=== PATIENT | female | born 1955 | race Caucasian/White ===

== ENCOUNTER 2018-12-29 11:59 | Observation (INO) | payer BC ==
[2018-12-29] MEDS ORDERED: Diltiazem 125 MG/25 ML ONE (12:12)
[2018-12-29 12:39] LABS: #Eosinphils 0.1 thou/uL (0.0-0.7); #Lymphocytes 1.5 thou/uL (1.20-3.40); #Monocytes 0.3 thou/uL (0.11-0.59); %Basophils 0.6 % (0.0-1.0); %Eosinophils 0.9 % (0.0-10.0); %Lymphocytes 18.6 % (21.0-51.0); %Monocytes 3.9 % (0.0-10.0); Hemoglobin 15.2 g/dL (12.0-16.0); Mean Corpuscular HGB CONC 33.6 g/dL (32.0-36.0); Mean Corpuscular Hemoglobin 29.7 pg (27.0-31.0); Mean Corpuscular Volume 88.2 fL (78.0-98.0); Mean Platelet Volume 5.9 fL (7.4-10.4); Platelet Count 350 thou/uL (130-400); RBC Distribution Width 12.1 % (11.5-14.5); Red Blood Cell (RBC) Count 5.14 mill/uL (4.20-5.40); White Blood Cell (WBC) Count 7.9 thou/uL (4.8-10.8)
--- NOTE | 2018-12-29 12:58 | RAD ---
EXAM: Portable chest PROVIDED CLINICAL HISTORY: Atrial fibrillation COMPARISON: None FINDINGS: Cardiac and mediastinal silhouette is within normal limits. No focal consolidation, pleural fluid or pneumothorax evident. IMPRESSION: No evidence for an acute cardiopulmonary process.
[2018-12-29 13:04] LABS: ALT (SGPT) 24 U/L (8-55); AST (SGOT) 25 U/L (5-34); Albumin 4.3 g/dL (3.4-4.8); Alkaline Phosphatase 62 U/L (40-150); Anion Gap 15 mmol/L (10-20); BUN (Urea Nitrogen) 8 mg/dL (9.8-20.1); Bilirubin, Total 0.6 mg/dL (0.2-1.2); Calc. Creatinine Clearance 0 mL/min (70-130); Calcium 10.3 mg/dL (7.8-10.44); Carbon Dioxide 23 mmol/L (23-31); Chloride 107 mmol/L (98-107); Estimated GFR-MDRD 74; Globulin 3.4 g/dL (2.4-3.5); Glucose 115 mg/dL (80-115); Potassium 3.6 mmol/L (3.5-5.1); Protein, Total 7.7 g/dL (6.0-8.3); Sodium 141 mmol/L (136-145)
[2018-12-29] MEDS ORDERED: Lidocaine Viscous Sol 2% 15 ml UD Cup ONE (15:16)
[2018-12-29] MEDS ORDERED: Mag-Al 1200 mg/1200 mg/30 ML UDCUP ONE (15:16)
[2018-12-29 16:33] LABS: Troponin I 0.027 ng/mL (< 0.028)
[2018-12-29 17:46] VITALS: BMI 25.0
[2018-12-29] MEDS ORDERED: Ondansetron PF 4 MG/2 ML Vial IVP PRN ×2 (18:00→19:43)
[2018-12-29] MEDS ORDERED: Ondansetron ODT 4 MG TAB SL PRN (18:00)
[2018-12-29] MEDS ORDERED: Calcium Carbonate 500 MG ChewTAB PO PRN (19:43)
[2018-12-29] MEDS ORDERED: Nitroglycerin 0.4 MG TAB (25 Tab Bottle) SL PRN (19:43)
[2018-12-29] MEDS ORDERED: Ondansetron ODT 4 MG TAB PO PRN (19:43)
[2018-12-29] MEDS ORDERED: Acetaminophen 500 MG TAB PO PRN (19:43)
[2018-12-29] MEDS ORDERED: Zolpidem Tartrate 5 MG TAB PO PRN (19:43)
[2018-12-29] MEDS ORDERED: Labetalol HCl 100 MG/20 ML VIAL SLOW IVP PRN (19:43)
[2018-12-29] MEDS: Diltiazem HCl SR 60 mg Capsule PO SCH (21:03)
[2018-12-29 21:31] LABS: Troponin I 0.033 ng/mL (< 0.028)
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
[2018-12-30 06:19] LABS: Bacteria/HPF None Seen HPF (None Seen); Bilirubin Negative (Negative); Blood, Urine Negative (Negative); Clarity Clear (Clear); Glucose, Urine (Dipstick) Normal (Negative); Leukocyte 75 Leu/uL (Negative); Nitrite Negative (Negative); Protein, Urine (Dipstick) Negative (Neg-Trace); RBC/HPF 0-3 HPF (0-3); Squamous Epithelial None Seen HPF (0-3); Urobilinogen Normal mg/dL (Less than 2)
[2018-12-30 06:20] LABS: Urine Culture Reflex Yes Yes
[2018-12-30] MEDS: Diltiazem HCl SR 60 mg Capsule PO SCH ×2 (07:54→21:17)
--- NOTE | 2018-12-30 08:38 | PRG ---
DATE OF SERVICE: 12/30/2018 SUBJECTIVE: The patient is feeling much better. She does not feel her heart racing or fluttering anymore. She had a good sleep last night. Tolerating her medications. Of note, she does report being under a lot of undue stress over the past several months, has been sick over the past week or two, and taking more Sudafed. She typically drinks lots of caffeine during the day. She reports no further episodes of heart racing, shortness of breath, or chest pain. OBJECTIVE: VITAL SIGNS: Temperature 98.5, pulse is 75 to 88, respirations 16, blood pressure 112/64, and pulse ox is 95% on room air. GENERAL: She is awake and alert. No acute distress. Speech is clear. NECK: Supple. HEART: Regular rate and rhythm. LUNGS: Clear. EXTREMITIES: No edema. LABORATORY DATA: Reviewed. Troponin I of 0.023, 0.027, and 0.033. EKG reveals normal sinus rhythm. Rhythm strip from EMS appears to be SVT, possible atrial flutter, but her ER EKG revealed normal sinus rhythm. ASSESSMENT AND PLAN: This is a 63-year-old female patient with no prior medical history, who presented to the Emergency Department with sudden onset of palpitations, lightheadedness, dizziness, admitted for atrial flutter and atrial fibrillation. She is now stable on Cardizem and started on anticoagulation with Eliquis. Waiting cardiology evaluation as well as echocardiogram and will continue those at this time. Further plan per Cardiology to decide whether electrophysiology needs to be consulted. Job ID: [id number]
[2018-12-30] MEDS ORDERED: Apixaban 5 MG TAB PO SCH (09:00)
[2018-12-30 09:37] LABS: Free T4 (Free Thyroxine) 1.07 ng/dL (0.70-1.48); Thyroid Stimulating Hormone 1.9101 uIU/mL (0.35-4.94)
--- NOTE | 2018-12-30 15:23 | NM ---
EXAM: Nuclear medicine VQ scan COMPARISON: Chest x-ray 12/29/2018 HISTORY: Shortness of breath TECHNIQUE: A VQ scan was performed in standard fashion. Ventilation images were obtained using 8 mCi of xenon-133. Perfusion images were obtained using 6.9 mCi of technetium 99m MAA. FINDINGS: Ventilation: Breath hold, equilibrium, and washout phases are unremarkable. No ventilatory defects ar e seen. No air trapping is seen. Perfusion: No small, medium, or large perfusion defects are seen. IMPRESSION: Normal VQ scan
--- NOTE | 2018-12-30 18:05 | CON ---
DATE OF CONSULTATION: HISTORY OF PRESENT ILLNESS: The patient is a pleasant 63-year-old woman who presents for evaluation of palpitations and dizziness. The patient has no previous cardiac history. She states recently she noted having increasing dizziness. On the day of admission, the patient suddenly felt extremely dizzy, lightheaded , and had palpitations. The patient was received IV Cardizem and transferred, and her heart rate slowed down. The patient states her palpitations subsequently resolved. The patient denies having any present palpitations or chest discomfort. PAST MEDICAL HISTORY: None. PAST SURGICAL HISTORY: None. SOCIAL HISTORY: None. MEDICATIONS: None. ALLERGIES: SULFA DRUGS AND AMOXICILLIN. FAMILY HISTORY: Positive family history of coronary artery disease. Mother had myocardial infarction. REVIEW OF SYSTEMS: Ten-point system otherwise unremarkable. PHYSICAL EXAMINATION: GENERAL: This is a thin woman, in no acute distress. VITAL SIGNS: Blood pressure is 129/78. NECK: Showed no jugular venous distention. LUNGS: Clear to auscultation. HEART: Regular rate and rhythm. Normal S1, S2 with a 1/6 systolic murmur. ABDOMEN: Nondistended. EXTREMITIES: Show no edema. VASCULAR: Radial pulses 2+. LABORATORY DATA: Sodium 141, potassium 3.6, chloride 107, bicarbonate 23, BUN 8 , and creatinine 0.78. White blood cell count is 7.9, hemoglobin 15.2, hematocrit 45.3, and platelets are 350. EKG revealed normal sinus rhythm with a normal ECG. Telemetry monitoring showed atrial fibrillation with rapid ventricular response. IMPRESSION: 1. New onset atrial fibrillation. 2. Cor pulmonale. This patient has new onset atrial fibrillation. She also has cor pulmonale. The echocardiogram reveals mildly elevated PA systolic pressure with a possible patent foramen ovale or atrial septal defect. A RYDER should be obtained to make sure that this is not an atrial septal defect. We will obtain a V/Q scan to rule out chronic pulmonary emboli. We will follow this patient with you through her hospitalization. Job ID: [id number] [facility]
[2018-12-30 23:43] LABS: Hemoglobin 14.3 g/dL (12.0-16.0); Platelet Count 373 thou/uL (130-400)
--- NOTE | 2018-12-31 08:24 | PRG ---
DATE OF SERVICE: 12/31/2018 SUBJECTIVE: The patient is feeling fine. She had a good day yesterday. Denies chest pain or shortness of breath. Denies palpitations or dizziness. No further episodes. OBJECTIVE: VITAL SIGNS: Temperature 97.8, pulse of 77, respirations 20, blood pressure 115/59, and pulse ox 97% on room air. Telemetry, sinus rhythm. GENERAL: She is awake and alert, in no acute distress. Speech is clear. NECK: Supple. HEART: Regular rate and rhythm. LUNGS: Clear. EXTREMITIES: With no edema. LABORATORY DATA: Troponin I's were negative. The thyroid function was normal. Hemoglobin and hematocrit are 14.3 and 41.5. Echocardiogram was reviewed, which revealed normal left ventricular ejection fraction at 55% to 60%. Mildly enlarged right atrium, severely enlarged right ventricle, [id number] tricuspid regurgitation, atrial septal defect could not be ruled out. Right ventricular systolic pressure was elevated. A V/Q scan was normal. ASSESSMENT AND PLAN: 1. This is a 63-year-old female patient with no prior heart disease, who was admitted with new-onset atrial fibrillation, atrial flutter, now normal sinus rhythm with Cardizem and anticoagulation with Eliquis. 2. Severely enlarged right ventricle. Dr. Smith to performed a RYDER today to rule out atrial septal defect. Further plan per Cardiology. 3. Disposition: Possibly home this afternoon following the procedure when okay with Cardiology unless there is further intervention necessary after the RYDER. Job ID: [id number]
[2018-12-31] MEDS ORDERED: PROPOFOL 20 ML ONE (11:57)
[2018-12-31] MEDS ORDERED: PROPOFOL 200 MG/20 ML VIAL ONE (12:20)
[2018-12-31] MEDS: Diltiazem HCl SR 60 mg Capsule PO SCH (13:32)
--- NOTE | 2018-12-31 14:59 | OP ---
DATE OF PROCEDURE: 12/31/2018 PROCEDURE PERFORMED: Transesophageal echocardiogram. INDICATION: A 63-year-old woman with paroxysmal atrial fibrillation. DESCRIPTION OF PROCEDURE: The patient was taken to the PACU. The patient was sedated by Anesthesiology. A transesophageal probe was placed into the distal esophagus and stomach. Echocardiographic images were obtained. The transesophageal probe was removed. FINDINGS: 1. Normal left ventricular systolic function. 2. Right atrial enlargement. 3. Right ventricle is enlarged. 4. Mild mitral regurgitation. 5. Mild tricuspid regurgitation. 6. Large atrial septal defect. IMPRESSION: Large ASD. Job ID: [id number]
[2018-12-31 15:31] VITALS: BP 122/59; TEMP 98
--- NOTE | 2018-12-31 23:07 | DIS ---
DATE OF ADMISSION: 12/29/2018 DATE OF DISCHARGE: 12/31/2018 ADMISSION DIAGNOSIS: New onset atrial fibrillation. DISCHARGE DIAGNOSES: Atrial fibrillation, resolved. Cor pulmonale. Large atrial septal defect. CONSULTATIONS: Dr. Smith for Cardiology. PROCEDURES PERFORMED: Telemetry monitoring, echocardiogram, pulmonary perfusion imaging, and transesophageal echocardiogram. HOSPITAL COURSE: This is a 63-year-old female, who has been in her usual state of health and presented to the emergency department with palpitations and dizziness. She was initially found to be in atrial fib and atrial flutter by EMS. They gave her dose of IV Cardizem, which resolved and converted her back to normal sinus rhythm. She remained in normal sinus rhythm during her hospitalization. She continued on Cardizem and was started on Eliquis for anticoagulation on admission. Echocardiogram was done and read by Dr. Smith and found to have severely enlarged right ventricular cavity. He recommended a V/Q scan, which was negative for any pulmonary emboli. He then performed a transesophageal echocardiogram to rule out any septal defect and he did find a large atrial septal defect. The patient remained stable throughout her hospitalization. According to Cardiology, she was stable for discharge home to continue the Eliquis and calcium-channel shemar with close followup. DISCHARGE PHYSICAL EXAMINATION: VITAL SIGNS: Temperature 98.0, pulse of 87 and regular, respirations 16, blood pressure 122/59, pulse ox is 96% on room air. GENERAL: She is awake and alert. No acute distress. Speech is clear. NECK: Supple. HEART: Regular rate and rhythm. LUNGS: Clear bilaterally. No wheeze, rales, or rhonchi. EXTREMITIES: With no edema. PRIOR DISCHARGE MEDICATIONS: Include: 1. Cardizem 60 mg b.i.d. 2. Eliquis 5 mg b.i.d. 3. Vitamin D daily. 4. Calcium p.r.n. FOLLOWUP INSTRUCTIONS: The patient to follow up in my office in 1 week. Follow up with Dr. Smith in 1 to 2 weeks. Job ID: [id number]
== END 2018-12-31 17:41 | disposition home or self-care (01) ==
LOC: ERS 11:59 → 2SW 17:43
PROVIDERS: ADMIT Family Medicine; ATTEND Family Medicine
PROC: B246ZZ4 Ultrasonography of Right and Left Heart, Transesophageal (ICD-10-PCS; principal; 2018-12-31)
DX: I48.91 Unspecified atrial fibrillation (principal); I27.81 Cor pulmonale (chronic); Q21.1 Atrial septal defect; I08.1 Rheumatic disorders of both mitral and tricuspid valves; Z88.0 Allergy status to penicillin; Z88.2 Allergy status to sulfonamides; Z79.899 Other long term (current) drug therapy
CPT/HCPCS: 36415; 71045; 78582; 80053; 81001; 82565; 84439; 84443; 84481; 84484; 85014; 85018; 85025; 85049; 87086; 93005; 93306; 93312; 96361; 96365; G0378; J2704

== ENCOUNTER 2019-02-13 12:04 | Outpatient (CLI) | payer BC ==
[2019-02-13 13:06] LABS: #Eosinphils 0.1 thou/uL (0.0-0.7); #Lymphocytes 1.8 thou/uL (1.20-3.40); #Monocytes 0.4 thou/uL (0.11-0.59); #Neutrophils 5.7 thou/uL (1.40-6.50); %Basophils 0.5 % (0.0-1.0); %Eosinophils 1.3 % (0.0-10.0); %Lymphocytes 22.5 % (21.0-51.0); %Monocytes 5.5 % (0.0-10.0); %Neutrophils 70.2 % (42.0-75.0); Hemoglobin 15.6 g/dL (12.0-16.0); Mean Corpuscular HGB CONC 34.8 g/dL (32.0-36.0); Mean Corpuscular Hemoglobin 30.4 pg (27.0-31.0); Mean Corpuscular Volume 87.3 fL (78.0-98.0); Mean Platelet Volume 5.8 fL (7.4-10.4); Platelet Count 370 thou/uL (130-400); Red Blood Cell (RBC) Count 5.12 mill/uL (4.20-5.40); White Blood Cell (WBC) Count 8.1 thou/uL (4.8-10.8)
[2019-02-13 13:12] LABS: INR-International Normal Ratio 1.3; Prothrombin Time 15.8 SEC (12.0-14.7)
[2019-02-13 13:34] LABS: ALT (SGPT) 24 U/L (8-55); AST (SGOT) 25 U/L (5-34); Albumin 4.9 g/dL (3.4-4.8); Alkaline Phosphatase 70 U/L (40-110); Anion Gap 14 mmol/L (10-20); BUN (Urea Nitrogen) 10 mg/dL (9.8-20.1); Bilirubin, Total 0.7 mg/dL (0.2-1.2); Calc. Creatinine Clearance 0 mL/min (70-130); Calcium 10.4 mg/dL (7.8-10.44); Carbon Dioxide 23 mmol/L (23-31); Chloride 106 mmol/L (98-107); Estimated GFR-MDRD 74; Globulin 3.2 g/dL (2.4-3.5); Glucose 85 mg/dL (80-115); Potassium 4.3 mmol/L (3.5-5.1); Protein, Total 8.1 g/dL (6.0-8.3); Sodium 139 mmol/L (136-145)
== END 2019-02-13 12:05 | disposition home or self-care (01) ==
LOC: LABBT 12:04
PROVIDERS: ATTEND Internal Medicine Cardiovascular Disease
DX: Z01.812 Encounter for preprocedural laboratory examination (principal); R94.39 Abnormal result of other cardiovascular function study
CPT/HCPCS: 80053; 85025; 85610; 85730

== ENCOUNTER 2019-02-17 05:50 | Day surgery (SDC) | payer BC ==
[2019-02-13 12:29] VITALS: BMI 25.2
[2019-02-17] MEDS ORDERED: Lidocaine 1% (PF) 30 ML VIAL ONE (06:45)
[2019-02-17] MEDS ORDERED: Midazolam HCl 2 mg/2 ml Vial ONE (08:12)
[2019-02-17] MEDS ORDERED: Metoprolol Tartrate 5 MG/5 ML VIAL ONE (08:37)
[2019-02-17 09:33] LABS: Actual Bicarbonate (HCO3a) 24.3 mEq/L (22-28); Analyzer IN Cardio OR; Base Excess (BEa) -0.2 mEq/L (-2.0 to +3.0); CO2 Tension 39.1 mmHg (35.0-45.0); Calcium, Ionized 1.19 mmol/L (1.12-1.30); Carboxyhemoglobin (COHb) 0.5 gm% (0.0-3.0); Hemoglobin (Hb) 13.9 g/dL (12.0-16.0); O2 Tension (PaO2) 66.3 mmHg (> 80.0); Potassium - ABG Lab 3.56 mmol/L (3.70-5.30); pH, Arterial 7.41 (7.35-7.45)
[2019-02-17 09:34] LABS: Actual Bicarbonate (HCO3a) 21.9 mEq/L (22-28); Analyzer IN Cardio OR; CO2 Tension 34.8 mmHg (35.0-45.0); Calcium, Ionized 1.17 mmol/L (1.12-1.30); Carboxyhemoglobin (COHb) 0.6 gm% (0.0-3.0); Hemoglobin (Hb) 14.3 g/dL (12.0-16.0); Potassium - ABG Lab 3.59 mmol/L (3.70-5.30); pH, Arterial 7.42 (7.35-7.45)
[2019-02-17 09:35] LABS: Actual Bicarbonate (HCO3a) 16.1 mEq/L (22-28); Actual Bicarbonate (HCO3a) 17.7 mEq/L (22-28); Actual Bicarbonate (HCO3a) 19.2 mEq/L (22-28); Actual Bicarbonate (HCO3a) 23.2 mEq/L (22-28); Actual Bicarbonate (HCO3a) 23.6 mEq/L (22-28); Analyzer IN Cardio OR; Base Excess (BEa) -0.3 mEq/L (-2.0 to +3.0); Base Excess (BEa) -6.5 mEq/L (-2.0 to +3.0); Base Excess (BEa) -7.8 mEq/L (-2.0 to +3.0); CO2 Tension 26.8 mmHg (35.0-45.0); CO2 Tension 28.2 mmHg (35.0-45.0); CO2 Tension 31.3 mmHg (35.0-45.0); CO2 Tension 36.6 mmHg (35.0-45.0); CO2 Tension 37.6 mmHg (35.0-45.0); Calcium, Ionized 0.71 mmol/L (1.12-1.30); Calcium, Ionized 0.77 mmol/L (1.12-1.30); Calcium, Ionized 0.98 mmol/L (1.12-1.30); Calcium, Ionized 1.15 mmol/L (1.12-1.30); Calcium, Ionized 1.16 mmol/L (1.12-1.30); Carboxyhemoglobin (COHb) 0.2 gm% (0.0-3.0); Carboxyhemoglobin (COHb) 0.3 gm% (0.0-3.0); Carboxyhemoglobin (COHb) 0.7 gm% (0.0-3.0); Hemoglobin (Hb) 11.3 g/dL (12.0-16.0); Hemoglobin (Hb) 11.9 g/dL (12.0-16.0); Hemoglobin (Hb) 13.4 g/dL (12.0-16.0); Hemoglobin (Hb) 14.1 g/dL (12.0-16.0); Hemoglobin (Hb) 14.8 g/dL (12.0-16.0); O2 Tension (PaO2) 64.6 mmHg (> 80.0); Potassium - ABG Lab 2.38 mmol/L (3.70-5.30); Potassium - ABG Lab 2.52 mmol/L (3.70-5.30); Potassium - ABG Lab 3.17 mmol/L (3.70-5.30); Potassium - ABG Lab 3.61 mmol/L (3.70-5.30); pH, Arterial 7.37 (7.35-7.45); pH, Arterial 7.38 (7.35-7.45); pH, Arterial 7.41 (7.35-7.45); pH, Arterial 7.43 (7.35-7.45); pH, Arterial 7.47 (7.35-7.45)
[2019-02-17 09:36] LABS: O2 Tension (PaO2) 49.3 mmHg (> 80.0)
[2019-02-17 09:37] LABS: O2 Tension (PaO2) 44.4 mmHg (> 80.0)
[2019-02-17 09:38] LABS: O2 Tension (PaO2) 44.2 mmHg (> 80.0)
[2019-02-17 09:39] LABS: O2 Tension (PaO2) 53.9 mmHg (> 80.0)
[2019-02-17 09:40] LABS: O2 Tension (PaO2) 53.1 mmHg (> 80.0)
[2019-02-17] MEDS ORDERED: Iopamidol 370 76% 100 ML VIAL ONE (11:22)
--- NOTE | 2019-02-17 17:07 | DIS ---
DATE OF ADMISSION: 02/17/2019 DATE OF DISCHARGE: 02/17/2019 DISCHARGE DIAGNOSES: 1. Coronary artery disease. 2. Atrial septal defect. 3. Paroxysmal atrial fibrillation. 4. Hypertension. HOSPITAL COURSE: The patient is a pleasant 64-year-old woman, who presents for a followup evaluation of ASD. The patient today underwent a cardiac catheterization. She was found to have normal left ventricular systolic function with estimated ejection fraction of 55% to 60%. The left anterior descending artery had a 20% proximal lesion and 30% mid lesion. There was a 90% lesion in the first septal shipping specialist. The left circumflex artery was free of significant disease. The right coronary artery was a large caliber vessel and was free of significant disease. The patient was found to have normal pulmonary artery systolic pressures. An accurate QP/QS was not obtained. By echocardiogram, it appeared to be approximately 1.4. The patient is being referred for further evaluation including a cardiac MRI to better delineate the ASD and whether an occluder device should be placed. DISCHARGE MEDICATIONS: 1. Eliquis 5 mg p.o. b.i.d. 2. Diltiazem 60 mg p.o. b.i.d. 3. Vitamin D tablet daily. 4. Calcium carbonate 500 mg q.4 hours. Job ID: [id number] [facility]TDD
== END 2019-02-17 13:45 | disposition home or self-care (01) ==
LOC: CCL 05:50
PROVIDERS: ATTEND Internal Medicine Cardiovascular Disease
PROC: 4A023N7 Measurement of Cardiac Sampling and Pressure, Left Heart, Percutaneous Approach (ICD-10-PCS; principal; 2019-02-17)
DX: I25.10 Atherosclerotic heart disease of native coronary artery without angina pectoris (principal); Q21.1 Atrial septal defect; I48.0 Paroxysmal atrial fibrillation; I10 Essential (primary) hypertension; Z88.0 Allergy status to penicillin; Z88.2 Allergy status to sulfonamides
CPT/HCPCS: 82805; 93451; 93458; 93561; 99152; 99153; C1769; J1644; J2001; J2250; Q9967

== ENCOUNTER 2019-06-13 01:07 | Emergency (ER) | payer BC ==
[2019-06-13 02:16] LABS: #Lymphocytes 1.4 thou/uL (1.20-3.40); #Monocytes 0.9 thou/uL (0.11-0.59); #Neutrophils 10.9 thou/uL (1.40-6.50); %Basophils 0.2 % (0.0-1.0); %Eosinophils 0.3 % (0.0-10.0); %Lymphocytes 10.6 % (21.0-51.0); %Monocytes 6.6 % (0.0-10.0); %Neutrophils 82.3 % (42.0-75.0); Mean Corpuscular HGB CONC 33.9 g/dL (32.0-36.0); Mean Corpuscular Hemoglobin 30.5 pg (27.0-31.0); Platelet Count 299 thou/uL (130-400); RBC Distribution Width 12.2 % (11.5-14.5); Red Blood Cell (RBC) Count 4.57 mill/uL (4.20-5.40); White Blood Cell (WBC) Count 13.2 thou/uL (4.8-10.8)
[2019-06-13 02:37] LABS: ALT (SGPT) 59 U/L (8-55); AST (SGOT) 59 U/L (5-34); Albumin 4.3 g/dL (3.4-4.8); Alkaline Phosphatase 58 U/L (40-110); Anion Gap 13 mmol/L (10-20); BUN (Urea Nitrogen) 17 mg/dL (9.8-20.1); Bilirubin, Total 0.8 mg/dL (0.2-1.2); CK (CPK) 74 U/L (29-168); Calc. Creatinine Clearance 0 mL/min (70-130); Calcium 9.3 mg/dL (7.8-10.44); Carbon Dioxide 24 mmol/L (23-31); Chloride 106 mmol/L (98-107); Estimated GFR-MDRD 85; Globulin 2.7 g/dL (2.4-3.5); Glucose 130 mg/dL (80-115); Sodium 139 mmol/L (136-145)
[2019-06-13 03:02] LABS: CKMB 3.5 ng/mL (0-6.6)
[2019-06-13] MEDS ORDERED: Norepinephrine 8 MG/0.9% NS 250 ML ONE (03:55)
--- NOTE | 2019-06-13 07:46 | RAD ---
EXAM: Single view of the chest HISTORY: Chest pain COMPARISON: 12/29/2018 FINDINGS: Single view of the chest shows a normal sized cardiomediastinal silhouette. There appears to be a septal occlusion device projecting over the heart. There is no evidence of consolidation, mass, or pleural effusion. The bones are unremarkable. IMPRESSION: No evidence of acute cardiopulmonary disease
== END 2019-06-13 04:26 | disposition short-term general hospital (02) ==
LOC: ERS 01:07
DX: I95.9 Hypotension, unspecified (principal); R07.9 Chest pain, unspecified; I48.91 Unspecified atrial fibrillation; Z79.02 Long term (current) use of antithrombotics/antiplatelets; Z79.01 Long term (current) use of anticoagulants; Z79.899 Other long term (current) drug therapy
CPT/HCPCS: 36415; 71045; 80053; 82550; 82553; 84484; 85025; 93005; 96360; 96361

== ENCOUNTER 2019-06-23 15:37 | Emergency (ER) | payer BC ==
[2019-06-23] MEDS ORDERED: diphenhydrAMINE 25 MG CAP ONE (16:00)
[2019-06-23] MEDS ORDERED: Famotidine 20 MG TAB ONE (16:00)
[2019-06-23] MEDS ORDERED: Dexamethasone 4 MG TAB ONE (16:01)
[2019-06-23 18:37] LABS: #Lymphocytes 0.6 thou/uL (1.20-3.40); #Monocytes 0.2 thou/uL (0.11-0.59); #Neutrophils 12.9 thou/uL (1.40-6.50); %Basophils 0.1 % (0.0-1.0); %Eosinophils 0.2 % (0.0-10.0); %Lymphocytes 4.5 % (21.0-51.0); %Monocytes 1.4 % (0.0-10.0); %Neutrophils 93.8 % (42.0-75.0); Hemoglobin 12.9 g/dL (12.0-16.0); Mean Corpuscular HGB CONC 34.3 g/dL (32.0-36.0); Mean Corpuscular Hemoglobin 30.7 pg (27.0-31.0); Mean Corpuscular Volume 89.6 fL (78.0-98.0); Platelet Count 407 thou/uL (130-400); RBC Distribution Width 12.5 % (11.5-14.5); Red Blood Cell (RBC) Count 4.22 mill/uL (4.20-5.40); White Blood Cell (WBC) Count 13.7 thou/uL (4.8-10.8)
[2019-06-23 18:44] LABS: INR-International Normal Ratio 1.1; Prothrombin Time 13.7 SEC (12.0-14.7)
[2019-06-23 18:59] LABS: ALT (SGPT) 52 U/L (8-55); AST (SGOT) 33 U/L (5-34); Alkaline Phosphatase 90 U/L (40-110); Anion Gap 12 mmol/L (10-20); BUN (Urea Nitrogen) 7 mg/dL (9.8-20.1); Bilirubin, Total 0.8 mg/dL (0.2-1.2); Calc. Creatinine Clearance 0 mL/min (70-130); Calcium 9.6 mg/dL (7.8-10.44); Carbon Dioxide 27 mmol/L (23-31); Chloride 105 mmol/L (98-107); Estimated GFR-MDRD 74; Globulin 3.3 g/dL (2.4-3.5); Glucose 103 mg/dL (80-115); Potassium 3.9 mmol/L (3.5-5.1); Protein, Total 7.3 g/dL (6.0-8.3); Sodium 140 mmol/L (136-145)
[2019-06-23] MEDS ORDERED: Clindamycin 150 MG CAP ONE (19:26)
== END 2019-06-23 20:30 | disposition home or self-care (01) ==
LOC: ERS 15:37
DX: L03.113 Cellulitis of right upper limb (principal); I48.91 Unspecified atrial fibrillation
CPT/HCPCS: 80053; 85025; 85610; 99283; J8540; Q0163

== ENCOUNTER 2019-07-16 23:47 | Inpatient (IN) | payer BC, MEDICARE ==
[2019-07-17] MEDS ORDERED: Diltiazem 125 MG/25 ML ONE (00:16)
[2019-07-17 00:25] LABS: #Eosinphils 0.1 thou/uL (0.0-0.7); #Lymphocytes 1.7 thou/uL (1.20-3.40); #Monocytes 0.9 thou/uL (0.11-0.59); #Neutrophils 9.2 thou/uL (1.40-6.50); %Basophils 0.3 % (0.0-1.0); %Eosinophils 0.6 % (0.0-10.0); %Monocytes 7.3 % (0.0-10.0); %Neutrophils 77.8 % (42.0-75.0); Mean Corpuscular HGB CONC 33.3 g/dL (32.0-36.0); Mean Corpuscular Hemoglobin 29.8 pg (27.0-31.0); Mean Corpuscular Volume 89.5 fL (78.0-98.0); Platelet Count 446 thou/uL (130-400); RBC Distribution Width 13.3 % (11.5-14.5); Red Blood Cell (RBC) Count 4.37 mill/uL (4.20-5.40); White Blood Cell (WBC) Count 11.9 thou/uL (4.8-10.8)
[2019-07-17 00:27] LABS: INR-International Normal Ratio 1.1
[2019-07-17 00:28] LABS: PTT 40.7 SEC (22.9-36.1)
[2019-07-17 00:39] LABS: ALT (SGPT) 18 U/L (8-55); AST (SGOT) 20 U/L (5-34); Alkaline Phosphatase 84 U/L (40-110); Anion Gap 18 mmol/L (10-20); BUN (Urea Nitrogen) 13 mg/dL (9.8-20.1); Bilirubin, Total 0.8 mg/dL (0.2-1.2); Calc. Creatinine Clearance 0 mL/min (70-130); Calcium 10.1 mg/dL (7.8-10.44); Carbon Dioxide 23 mmol/L (23-31); Chloride 98 mmol/L (98-107); Estimated GFR-MDRD 73; Globulin 3.8 g/dL (2.4-3.5); Glucose 121 mg/dL (80-115); Potassium 3.7 mmol/L (3.5-5.1); Protein, Total 7.8 g/dL (6.0-8.3); Sodium 135 mmol/L (136-145)
[2019-07-17 03:42] LABS: Troponin I 0.031 ng/mL (< 0.028)
[2019-07-17] MEDS ORDERED: Diltiazem HCl 125 MG, Admixture Fee 1 EACH in Sodium Chloride 0.9% 100 ML IVPB SCH (04:00)
[2019-07-17] MEDS ORDERED: Diltiazem 125 MG in Sodium Chloride 0.9% 100 ML IVPB SCH (04:03)
[2019-07-17] MEDS ORDERED: Acetaminophen 325 MG TAB PO PRN (04:03)
[2019-07-17] MEDS ORDERED: guaiFENesin/Codeine Phosphate 200 mg/20 mg 10 ml UD Cup PO PRN (04:03)
[2019-07-17 04:09] VITALS: BMI 22.5
--- NOTE | 2019-07-17 04:20 | HP ---
PRIMARY CARE PHYSICIAN: Rishabh Lucia DO. [employer] OFFICER: Dr. Kwok at [facility]. She also has seen Dr. Smith. CHIEF COMPLAINT: "I have been hurting all over and my heart has been racing." HISTORY OF PRESENT ILLNESS: Ms. Barragan is a very pleasant 64-year-old female who was diagnosed with atrial fibrillation in December of last year. She says that during that evaluation, she had an echo in which it was discovered that she had an atrial septal defect. She was then transferred to [facility], where she underwent an occluder procedure. She says that following the procedure, she developed a pericardial effusion and had to be life flighted back out to [facility]. She says she was in the hospital for about 11 days. During that time, she was taken off Eliquis and was told never to restart it and had been discharged home. This was around June 12. She had been doing relatively well until earlier today. She started feeling like she was hurting all over. She started having a cough as well. She noticed a low-grade temperature and she says it hurts to take in a breath. She denies feeling short of breath, but says her ribs are sore. She also notes some nausea and was feeling like her heart was racing. As a result, she came to the ER where she was evaluated and found to be in atrial flutter with a heart rate in the 150s. She was given diltiazem 5 mg IV as well as her oral dose and her heart rate now has come down to the 70s and 80s. The patient otherwise says she feels a bit weak, but denies any other complaints. REVIEW OF SYSTEMS: All systems were reviewed and are negative except for that mentioned in the History of Present Illness. PAST MEDICAL HISTORY: Significant for atrial fibrillation, osteopenia, and history of pericardial effusion. PAST SURGICAL HISTORY: She has had a repair of an atrial septal defect as well as a pericardial drain placed. ALLERGIES: TO ASPIRIN, SULFA, AND AMOXICILLIN. FAMILY HISTORY: Significant for father who has diabetes. Mother had heart attack and as a result of the clot busting medicine. She has 2 aunts with breast cancer. SOCIAL HISTORY: She is . She is a nonsmoker and nondrinker. Has 1 child. Code status is full code. CURRENT MEDICATIONS: Include; 1. Amiodarone 200 mg daily. 2. Diltiazem 60 mg twice a day. 3. Potassium chloride 20 mEq p.o. daily. 4. Lasix 20 mg daily. 5. Protonix 40 mg daily. 6. Zyrtec 10 mg a day. PHYSICAL EXAMINATION: GENERAL: She is alert and oriented. She appears to be in no acute distress. She is well developed and well nourished. VITAL SIGNS: Her blood pressure was 146/63, heart rate ranged from 108-150, respiratory rate of 20, temperature is 99.1. HEENT: Pupils are equal, round, and reactive to light. Extraocular muscles are intact. Her sclerae are anicteric. Throat; there is no erythema, no exudates. NECK: No adenopathy. No bruits. LUNGS: Clear to auscultation. There is no wheezing, no rales, no rhonchi. CARDIOVASCULAR: She has a normal S1, S2. She does have a very slight 2/6 systolic murmur at the base. ABDOMEN: Soft. It is nontender, nondistended. Positive for bowel sounds. No rebound or guarding. EXTREMITIES: There is no clubbing, cyanosis, no edema. No calf tenderness. No joint effusions. Neurologic: Her cranial nerves 2 through 12 are grossly intact. Muscle strength is 5/5 in both her upper and lower extremities. SKIN AND INTEGUMENT: No significant skin changes or rash. LABORATORY RESULTS: Sodium is 135, potassium 3.7, chloride is 98, CO2 is 23, BUN of 13, creatinine 0.79, glucose is 121. White blood cell count 11.9, hemoglobin 13, hematocrit is 39.1, and platelet count is 446. INR is 1.1. She has a chest x-ray. Heart size appears just slightly enlarged. She has a mild elevation in the right hemidiaphragm and what appears to be bilateral pleural effusions, some mild congestion, that is by my reading. On her EKG, it was atrial flutter with a heart rate of the 150s. ASSESSMENT: This is a pleasant 64-year-old female who presents to the emergency room with atrial flutter with rapid ventricular response. Her heart rate has been controlled with IV Cardizem. She will be admitted to telemetry. We will continue the IV Cardizem. Consult Dr. Smith for further recommendations. We will hold off on anticoagulation given her a history of recent pericardial effusion and concern for bleeding and defer recommendations to Cardiology. 1. Low-grade fever and pleuritic chest pain. I suspect this is due to a viral syndrome. We will check a viral respiratory panel on the patient. She does admit to having sick family contacts. 2. We will continue amiodarone at her current dose and continue the Protonix and further recommendations to follow. Job ID: [id number]
[2019-07-17 06:29] LABS: Troponin I 0.018 ng/mL (< 0.028)
--- NOTE | 2019-07-17 07:47 | RAD ---
CHEST 1 VIEW: INDICATION: Atrial fibrillation with pleural effusion. COMPARISON: Prior exam dated 07/16/2019 at 1:57 p.m. FINDINGS: There are stable bilateral small pleural effusions. There is bibasilar atelectasis which is slightly more pronounced than on the prior exam. The septal occlusion device is unchanged. Heart size is no rmal. Osseous structures are similar-appearing. IMPRESSION: Small bilateral pleural effusions with bibasilar atelectasis. POS: BH
[2019-07-17] MEDS ORDERED: Amiodarone 200 MG TAB PO SCH (09:00)
--- NOTE | 2019-07-17 09:07 | CON ---
DATE OF CONSULTATION: HISTORY OF PRESENT ILLNESS: The patient is a 64-year-old woman, who presented for evaluation of palpitations. The patient has a history of atrial septal defect. She was seen in December of this year and underwent a cardiac catheterization. She was found to have mild 30% lesion in the LAD and a 20% lesion in the first septal fence installer helper. She also had a 90% stenosis in the left circumflex artery. The patient was sent to [place] for an atrial septal occluder device. She developed atrial arrhythmias and was treated with amiodarone. She was started on Eliquis and had developed a large pericardial effusion. This was subsequently drained. The patient has been on amiodarone and Cardizem. She was in her usual state of health when she developed recurrent palpitations. The patient did not run out of any of her medications. The patient denies having any chest discomfort. PAST MEDICAL HISTORY: 1. Atrial fibrillation. 2. Hypertension. 3. Atrial septal defect. 4. Osteopenia. PAST SURGICAL HISTORY: None ALLERGIES: ASPIRIN, SULFA, AND AMOXICILLIN. SOCIAL HISTORY: Nonsmoker. MEDICATIONS: 1. Amiodarone 200 daily. 2. Diltiazem 60 b.i.d. 3. Potassium 20 daily. 4. Lasix 20 daily. 5. Protonix 40 daily. 6. Zyrtec 20 daily. REVIEW OF SYSTEMS: Ten-point system otherwise unremarkable. PHYSICAL EXAMINATION: GENERAL: This is a thin, pale woman, in no acute distress. VITAL SIGNS: Blood pressure 101/58. NECK: No jugular venous distention. LUNGS: Clear to auscultation. HEART: Regular rate and rhythm. Normal S1 and S2. ABDOMEN: Nondistended. EXTREMITIES: Showed no edema. VASCULAR: Radial pulses 2+. LABORATORY DATA: Sodium 135, potassium 3.7, chloride 98, bicarbonate 23, BUN 13 , and creatinine 0.79. Troponin 0.02. White blood cell count 11.9, hemoglobin 13.0, hematocrit 39.1, and platelets are 446. IMAGING DATA: EKG atrial flutter with 2:1 conduction. IMPRESSION: 1. Atrial flutter. 2. History of atrial arrhythmias. 3. History of atrial septal occluder device placement. 4. History of pericardial effusion. 5. Hypertension. 6. Dyslipidemia. PLAN: This patient presented with recurrent atrial flutter. She converted back to sinus rhythm. The patient is unable to tolerate Eliquis. From a cardiac standpoint, I will increaest her amiodarone. I will contact Dr. Kwok who has been managing her cardiac medications. We will follow this patient with you through her hospitalization. Job ID: [id number] MTDD
[2019-07-17] MEDS ORDERED: Loratadine 10 MG TAB PO PRN (10:30)
--- NOTE | 2019-07-17 18:54 | PDOC.EVN ---
Event Note - Event Note Event Note: pt seen an examined she feels tired today since she did not sleep much last night. she is not on any asa or AC. she states that last time she had hemopericardium. Also she had bruises with aspirin and rash.
[2019-07-17] MEDS: Amiodarone 200 MG TAB PO SCH (20:21)
[2019-07-18 05:23] LABS: #Eosinphils 0.1 thou/uL (0.0-0.7); %Basophils 0.7 % (0.0-1.0); Mean Corpuscular Volume 88.8 fL (78.0-98.0); RBC Distribution Width 13.1 % (11.5-14.5)
[2019-07-18 05:36] LABS: Anion Gap 13 mmol/L (10-20); BUN (Urea Nitrogen) 9 mg/dL (9.8-20.1); Calc. Creatinine Clearance 77 mL/min (70-130); Calcium 9.4 mg/dL (7.8-10.44); Carbon Dioxide 25 mmol/L (23-31); Chloride 101 mmol/L (98-107); Estimated GFR-MDRD 82; Glucose 96 mg/dL (80-115); Potassium 3.6 mmol/L (3.5-5.1); Sodium 135 mmol/L (136-145)
[2019-07-18 05:44] LABS: #Lymphocytes 1.4 thou/uL (1.20-3.40); #Monocytes 0.6 thou/uL (0.11-0.59); #Neutrophils 4.9 thou/uL (1.40-6.50); %Eosinophils 1.9 % (0.0-10.0); %Lymphocytes 19.7 % (21.0-51.0); %Monocytes 8.6 % (0.0-10.0); %Neutrophils 69.1 % (42.0-75.0); Hemoglobin 11.2 g/dL (12.0-16.0); Mean Corpuscular HGB CONC 34.2 g/dL (32.0-36.0); Mean Corpuscular Hemoglobin 30.4 pg (27.0-31.0); Mean Platelet Volume 6.2 fL (7.4-10.4); Platelet Count 394 thou/uL (130-400); Red Blood Cell (RBC) Count 3.67 mill/uL (4.20-5.40)
[2019-07-18] MEDS: Amiodarone 200 MG TAB PO SCH ×2 (08:34→20:46)
[2019-07-18] MEDS: Potassium Chloride 20 MEQ TAB PO SCH (08:34)
[2019-07-18] MEDS: Furosemide 20 MG TAB PO SCH (08:34)
[2019-07-18] MEDS ORDERED: Diltiazem HCl SR 60 mg Capsule PO SCH (10:56)
[2019-07-18] MEDS ORDERED: Aspirin 325 MG TAB PO SCH (10:57)
[2019-07-18] MEDS ORDERED: Aspirin Chewable 81 MG TAB PO SCH (13:45)
--- NOTE | 2019-07-18 14:56 | PDOC.HOSPP ---
- Subjective Encounter Date: 07/18/19 Encounter Time: 11:45 Subjective: Pt sitting up in chair with family by bedside. she states that she was able to sleep well last night compared to her other nights at home. - Objective Vital Signs & Weight: Vital Signs (12 hours) Temp Pulse Resp BP Pulse Ox 07/18/19 11:38 97.9 F 88 16 103/66 96 07/18/19 08:32 98.1 F 86 16 110/55 L 96 07/18/19 03:49 98.2 F 84 16 104/55 L 96 Weight Weight 137 lb 8 oz I&O: 07/17/19 07/18/19 07/19/19 06:59 06:59 06:59 Intake Total 130 865 Output Total 400 700 Balance -270 165 Result Diagrams: 07/18/19 05:03 07/18/19 05:03 Hospitalist ROS - Review of Systems Cardiovascular: denies: chest pain, palpitations, orthopnea, paroxysmal noc. dyspnea, edema, light headedness, other Gastrointestinal: denies: nausea, vomiting, abdominal pain, diarrhea, constipation, melena, hematochezia, other Genitourinary: denies: dysuria, frequency, incontinence, hematuria, retention, other Musculoskeletal: denies: neck pain, shoulder pain, arm pain, back pain, hand pain, leg pain, foot pain, other - Medication Medications: Active Medications Generic Name Dose Route Start Last Admin Trade Name Freq PRN Reason Stop Dose Admin Amiodarone HCl 200 mg 07/17/19 21:00 07/18/19 08:34 Cordarone PO 200 mg BID MARYAM Administration Aspirin 81 mg 07/18/19 13:45 07/18/19 13:55 Aspirin Chewable PO 07/18/19 15:00 81 mg NOW MARYAM Administration Furosemide 20 mg 07/18/19 09:00 07/18/19 08:34 Lasix PO 20 mg DAILY MARYAM Administration Pantoprazole Sodium 40 mg 07/18/19 09:00 07/18/19 08:34 Protonix PO 40 mg DAILY MARYAM Administration Potassium Chloride 20 meq 07/18/19 09:00 07/18/19 08:34 K-Dur PO 20 meq DAILY MARYAM Administration Sodium Chloride 10 ml 07/17/19 09:00 07/18/19 08:34 Flush - Normal Saline IVF 10 ml Q12HR MARYAM Administration - Exam Heart: negative: RRR, no murmur, no gallops, no rubs, normal peripheral pulses, irregular, diminshed peripheral pulses, murmur present, II/IV, III/IV Respiratory: negative: CTAB, no wheezes, no rales, no ronchi, normal chest expansion, no tachypnea, normal percussion, rales, rhonchi, tachypneic, wheezes Gastrointestinal: negative: soft, non-tender, non-distended, normal bowel sounds , no palpable masses, no hepatomegaly, no splenomegaly, no bruit, no guarding, no rigidity, tender to palpation, distended, diminished bowl sounds, voluntary guarding Extremities: negative: no cyanosis, no clubbing, no edema, 1+ LE edema, 2+ LE edema, clubbing Hosp A/P (1) Atrial flutter Code(s): I48.92 - UNSPECIFIED ATRIAL FLUTTER Status: Acute (2) ASD (atrial septal defect) Code(s): Q21.1 - ATRIAL SEPTAL DEFECT Status: Acute (3) Hemopericardium Code(s): I31.2 - HEMOPERICARDIUM, NOT ELSEWHERE CLASSIFIED Status: Acute - Plan pt is currently on amiodarone is feels well on it. I had a lengthy discussion with family about her not being on any AC. she has been in SR overnight. I spoke with her daughter who states that she was sent to a construction management assistant in [place] who did not think asa caused her the rash. Her superior court clerk thought it could have been the yellow coating on her asa. Pt states that she is sensitive to many meds. pt's daughter states that her superior court clerk states that she can be started on asa. will start her on regular asa and see how she does. pt and family has agreed. They are aware of the risk of stroke. They do not want any AC due to her hemopericardium on eliquis and want to follow up with their superior court clerk in [place] for that. Give her low bp will hold off on Cardizem for now and watch her.
--- NOTE | 2019-07-18 15:00 | PDOC.CPN ---
- Subjective Date: 07/18/19 Time: 15:09 Interval history: The pt seen and examined. No overnight events. No cardiac complaints. She had to back to bed due to dizziness after she attempted to walk from bed to door - Objective Allergies/Adverse Reactions: Allergies Allergy/AdvReac Type Severity Reaction Status Date / Time amoxicillin Allergy Verified 02/13/19 12:29 Sulfa (Sulfonamide Allergy Verified 02/13/19 12:29 Antibiotics) aspirin AdvReac GERD Verified 02/13/19 12:29 Visit Medications: Current Medications Acetaminophen (Tylenol) 650 mg PO Q4H PRN PRN Reason: Headache/Fever/Mild Pain (1-3) Amiodarone HCl (Cordarone) 200 mg PO BID [facility] Last Admin: 07/18/19 08:34 Dose: 200 mg Aspirin (Aspirin Chewable) 81 mg PO DAILY MARYAM Furosemide (Lasix) 20 mg PO DAILY MARYAM Last Admin: 07/18/19 08:34 Dose: 20 mg Guaifenesin/Codeine Phosphate (Robitussin Ac) 10 ml PO Q6H PRN PRN Reason: Cough Loratadine (Claritin) 10 mg PO DAILYPRN PRN PRN Reason: Allergies Pantoprazole Sodium (Protonix) 40 mg PO DAILY [facility] Last Admin: 07/18/19 08:34 Dose: 40 mg Potassium Chloride (K-Dur) 20 meq PO DAILY MARYAM Last Admin: 07/18/19 08:34 Dose: 20 meq Sodium Chloride (Flush - Normal Saline) 10 ml IVF Q12HR MARYAM Last Admin: 07/18/19 08:34 Dose: 10 ml Sodium Chloride (Flush - Normal Saline) 10 ml IVF PRN PRN PRN Reason: Saline Flush Vital Signs & Weight: Vital Signs Temp Pulse Resp BP Pulse Ox 07/18/19 11:38 97.9 F 88 16 103/66 96 07/18/19 08:32 98.1 F 86 16 110/55 L 96 07/18/19 03:49 98.2 F 84 16 104/55 L 96 Weight 137 lb 8 oz - Physical Exam General: alert & oriented x3 HEENT: mucus membranes moist Neck: supple neck Cardiac: regular rate and rhythm, S1/S2 Lungs: clear to auscultation Neuro: cranial nerve 2-12 intact Extremities: no edema - Labs Result Diagrams: 07/18/19 05:03 07/18/19 05:03 Troponin/CKMB Troponin I 0.018 ng/mL (< 0.028) 07/17/19 05:41 - Assessment/Plan Assessment/Plan: 1. Aflutter with RVR - converted back to SR; on Amiodarone 200mg BID since 07/17; not on Eliquis due to hx of large Pericardial effusion 2/2 Eliquis. On ASA 81mg qd 2. HTN - stable 3. HLD 4. hx of atrial septal Occluder device placement in [place] 5. Hx of Large Pericardial effusion 2/2 Eliquis MAR reviewed * Dr Kwok in [place] repaired the ASD * Dr Smith' pt Pt. seen and eval. by me. I agree with the plan by the FIXTURE RELAMPER. On my exam she has a few bibasilar rales. No wheezing. RRR. No edema. CXR indicates small bilateral effusions. denise
[2019-07-19] MEDS: Aspirin Chewable 81 MG TAB PO SCH (08:48)
[2019-07-19] MEDS: Furosemide 20 MG TAB PO SCH (08:48)
[2019-07-19] MEDS: Amiodarone 200 MG TAB PO SCH ×2 (08:48→20:59)
[2019-07-19] MEDS: Potassium Chloride 20 MEQ TAB PO SCH (08:48)
[2019-07-19] MEDS ORDERED: Melatonin 3 MG TAB PO PRN (09:32)
--- NOTE | 2019-07-19 12:57 | PDOC.HOSPP ---
- Subjective Encounter Date: 07/19/19 Encounter Time: 10:15 Subjective: pt up in bed states she did not sleep well last night. No events on the monitor. - Objective Vital Signs & Weight: Vital Signs (12 hours) Temp Pulse Resp BP BP Pulse Ox 07/19/19 11:18 97.3 F L 80 18 97/54 L 96 07/19/19 08:45 98 F 88 16 118/58 L 96 07/19/19 04:00 98.7 F 79 18 119/53 L 96 Weight Weight 137 lb 8 oz I&O: 07/18/19 07/19/19 07/20/19 06:59 06:59 06:59 Intake Total 865 1690 Output Total 700 1925 Balance 165 -235 Result Diagrams: 07/18/19 05:03 07/18/19 05:03 Hospitalist ROS - Review of Systems Cardiovascular: denies: chest pain, palpitations, orthopnea, paroxysmal noc. dyspnea, edema, light headedness, other Gastrointestinal: denies: nausea, vomiting, abdominal pain, diarrhea, constipation, melena, hematochezia, other Genitourinary: denies: dysuria, frequency, incontinence, hematuria, retention, other Musculoskeletal: denies: neck pain, shoulder pain, arm pain, back pain, hand pain, leg pain, foot pain, other - Medication Medications: Active Medications Generic Name Dose Route Start Last Admin Trade Name Freq PRN Reason Stop Dose Admin Acetaminophen 650 mg 07/17/19 04:03 07/18/19 20:46 Tylenol PO 650 mg Q4H PRN Administration Headache/Fever/Mild Pain (1-3) Amiodarone HCl 200 mg 07/17/19 21:00 07/19/19 08:48 Cordarone PO 200 mg BID MARYAM Administration Aspirin 81 mg 07/19/19 09:00 07/19/19 08:48 Aspirin Chewable PO 81 mg DAILY MARYAM Administration Furosemide 20 mg 07/18/19 09:00 07/19/19 08:48 Lasix PO 20 mg DAILY MARYAM Administration Pantoprazole Sodium 40 mg 07/18/19 09:00 07/19/19 08:48 Protonix PO 40 mg DAILY MARYAM Administration Potassium Chloride 20 meq 07/18/19 09:00 07/19/19 08:48 K-Dur PO 20 meq DAILY MARYAM Administration Sodium Chloride 10 ml 07/17/19 09:00 07/19/19 08:48 Flush - Normal Saline IVF 10 ml Q12HR MARYAM Administration - Exam Neck: negative: supple, symmetric, no JVD, no thyromegaly, no lymphadenopathy, no carotid bruit, JVD Heart: negative: RRR, no murmur, no gallops, no rubs, normal peripheral pulses, irregular, diminshed peripheral pulses, murmur present, II/IV, III/IV Respiratory: negative: CTAB, no wheezes, no rales, no ronchi, normal chest expansion, no tachypnea, normal percussion, rales, rhonchi, tachypneic, wheezes Hosp A/P (1) Atrial flutter Code(s): I48.92 - UNSPECIFIED ATRIAL FLUTTER Status: Acute (2) ASD (atrial septal defect) Code(s): Q21.1 - ATRIAL SEPTAL DEFECT Status: Acute (3) Hemopericardium Code(s): I31.2 - HEMOPERICARDIUM, NOT ELSEWHERE CLASSIFIED Status: Acute - Plan pt is currently on amiodarone is feels well on it. I had a lengthy discussion with family about her not being on any AC. she has been in SR overnight. I spoke with her daughter who states that she was sent to a operation manager in [place] who did not think asa caused her the rash. Her ethylene plant helper thought it could have been the yellow coating on her asa. Pt states that she is sensitive to many meds. pt's daughter states that her ethylene plant helper states that she can be started on asa. will start her on regular asa and see how she does. pt and family has agreed. They are aware of the risk of stroke. They do not want any AC due to her hemopericardium on eliquis and want to follow up with their ethylene plant helper in [place] for that. Give her low bp will hold off on Cardizem for now and watch her. 07/18 pt tolerated asa no issues. she had no events overnight on the monitor and is in SR. she can go home but wants to wait another day. she had some sharp pain to her right chest wall area. possible discharge in am.
--- NOTE | 2019-07-19 15:27 | PDOC.CPN ---
- Subjective Date: 07/19/19 Time: 15:30 Interval history: The pt seen and examined. No overnight events. No cardiac complaints. Did not have dizziness with exercise today; She is willing to walk more this PM - Objective Allergies/Adverse Reactions: Allergies Allergy/AdvReac Type Severity Reaction Status Date / Time amoxicillin Allergy Verified 02/13/19 12:29 Sulfa (Sulfonamide Allergy Verified 02/13/19 12:29 Antibiotics) aspirin AdvReac GERD Verified 02/13/19 12:29 Visit Medications: Current Medications Acetaminophen (Tylenol) 650 mg PO Q4H PRN PRN Reason: Headache/Fever/Mild Pain (1-3) Last Admin: 07/18/19 20:46 Dose: 650 mg Amiodarone HCl (Cordarone) 200 mg PO BID [facility] Last Admin: 07/19/19 08:48 Dose: 200 mg Aspirin (Aspirin Chewable) 81 mg PO DAILY [facility] Last Admin: 07/19/19 08:48 Dose: 81 mg Furosemide (Lasix) 20 mg PO DAILY [facility] Last Admin: 07/19/19 08:48 Dose: 20 mg Guaifenesin/Codeine Phosphate (Robitussin Ac) 10 ml PO Q6H PRN PRN Reason: Cough Loratadine (Claritin) 10 mg PO DAILYPRN PRN PRN Reason: Allergies Melatonin (Melatonin) 3 mg PO HS PRN PRN Reason: Insomnia Pantoprazole Sodium (Protonix) 40 mg PO DAILY [facility] Last Admin: 07/19/19 08:48 Dose: 40 mg Potassium Chloride (K-Dur) 20 meq PO DAILY [facility] Last Admin: 07/19/19 08:48 Dose: 20 meq Sodium Chloride (Flush - Normal Saline) 10 ml IVF Q12HR [facility] Last Admin: 07/19/19 08:48 Dose: 10 ml Sodium Chloride (Flush - Normal Saline) 10 ml IVF PRN PRN PRN Reason: Saline Flush Vital Signs & Weight: Vital Signs Temp Pulse Resp BP BP Pulse Ox 07/19/19 11:18 97.3 F L 80 18 97/54 L 96 07/19/19 08:45 98 F 88 16 118/58 L 96 07/19/19 04:00 98.7 F 79 18 119/53 L 96 Weight 137 lb 8 oz - Physical Exam General: alert & oriented x3 HEENT: mucus membranes moist Neck: supple neck Cardiac: regular rate and rhythm, S1/S2 Lungs: clear to auscultation, decreased breath sounds Neuro: cranial nerve 2-12 intact - Labs Result Diagrams: 07/18/19 05:03 07/18/19 05:03 Troponin/CKMB Troponin I 0.018 ng/mL (< 0.028) 07/17/19 05:41 - Telemetry Sinus rhythms and dysrhythmias: sinus rhythm - Assessment/Plan Assessment/Plan: 1. Aflutter with RVR - converted back to SR on 07/18/2019; remains in SR now; on Amiodarone 200mg BID since 07/17/2019; not on Eliquis due to hx of large Pericardial effusion 2/2 Eliquis. On ASA 81mg qd 2. HTN - stable 3. HLD 4. hx of ASD with atrial septal Occluder device placement in [place] - will f/u with Dr Kwok in 07/2019 5. Hx of Large Pericardial effusion 2/2 Eliquis MAR reviewed * Dr Kwok in [place] repaired the ASD * Dr Smith' pt
[2019-07-20 09:07] VITALS: BP 111/55; TEMP 97.9
[2019-07-20] MEDS: Aspirin Chewable 81 MG TAB PO SCH (09:30)
[2019-07-20] MEDS: Furosemide 20 MG TAB PO SCH (09:30)
[2019-07-20] MEDS: Amiodarone 200 MG TAB PO SCH (09:30)
[2019-07-20] MEDS: Potassium Chloride 20 MEQ TAB PO SCH (09:30)
[2019-07-20] MEDS ORDERED: Rosuvastatin 10 MG TAB PO SCH (21:00)
--- NOTE | 2019-07-21 11:24 | DIS ---
DATE OF ADMISSION: 07/17/2019 DATE OF DISCHARGE: 07/20/2019 DISCHARGE DIAGNOSES: 1. Atrial flutter, resolved. 2. Atrial septal defect status post occlusive device. 3. History of hemopericardium. HOSPITAL COURSE: The patient is a very pleasant 64-year-old female who initially presented to the hospital on 07/17, with complaints of just body aches and pains. At this time, she was found to be in heart rate of 150 and atrial fibrillation with rapid ventricular response. She was given some diltiazem and was seen by Cardiology. Cardiology increased her amiodarone to 200 mg twice a day. She initially was taking amiodarone 200 mg daily. At this time, she remained in sinus rhythm for 2 whole days. There was some discussion about anticoagulation; however, the patient states that she needs to discuss this with her aquatic ecologist in [place] since after she was on Eliquis, she had a hemopericardium, I will defer that, she does understand the risk of strokes. There is also another issue with her in regard to her aspirin. The patient states that she is very sensitive to medications and had broken out into a rash in [place] and the initial thought was possible aspirin related. However, the patient's daughter did state that she did see an electronics parts sales representative in [place] who did not think it was secondary to aspirin. At this time, [id number] aspirin was started. The patient tolerated for 2 days without any issues. She will be discharged home with that. Also, the patient is going to follow up as an outpatient with her primary and also with aquatic ecologist. She did have some issue with her dental when her crown fell off. I informed her that she needs to see her dentist in regard to this. HOME MEDICATIONS: Will be as of the following. She is going to be on: 1. Amiodarone 200 mg twice a day. 2. Aspirin 81 mg daily. 3. Crestor 10 mg daily. 4. Lasix 20 mg daily. 5. Pantoprazole 40 mg daily. 6. Potassium 20 mEq daily. 7. Zyrtec 10 mg daily p.r.n. PHYSICAL EXAMINATION: VITAL SIGNS: Temperature 97.7, pulse 77, respirations 16, 96% on room air, blood pressure 111/55. GENERAL: She is awake, alert, and oriented x3. Does not appear in distress. CV: S1 and S2 present. No murmurs, rubs, gallops. Again, she will follow up with her primary. Job ID: [id number]
== END 2019-07-20 11:28 | disposition home or self-care (01) | DRG 309 ==
LOC: ERS 23:47 → 2NO 07-17 01:17
PROVIDERS: ADMIT Internal Medicine; ATTEND Internal Medicine
DX: I48.92 Unspecified atrial flutter (principal); I31.2 Hemopericardium, not elsewhere classified; Q21.1 Atrial septal defect; R40.2362 Coma scale, best motor response, obeys commands, at arrival to emergency department; R40.2142 Coma scale, eyes open, spontaneous, at arrival to emergency department; R40.2252 Coma scale, best verbal response, oriented, at arrival to emergency department; I48.91 Unspecified atrial fibrillation; M85.80 Other specified disorders of bone density and structure, unspecified site; Z88.1 Allergy status to other antibiotic agents; Z88.2 Allergy status to sulfonamides; Z88.8 Allergy status to other drugs, medicaments and biological substances; Z83.3 Family history of diabetes mellitus; R50.9 Fever, unspecified; R07.81 Pleurodynia; E78.5 Hyperlipidemia, unspecified; I10 Essential (primary) hypertension
CPT/HCPCS: 36415; 71045; 80048; 80053; 84443; 84484; 85025; 85610; 85730; 87633; 96365; 96366

== ENCOUNTER 2019-07-28 03:05 | Observation (INO) | payer BC, MEDICARE ==
[2019-07-28 03:38] LABS: #Basophils 0.1 thou/uL (0.0-0.2); #Eosinphils 0.1 thou/uL (0.0-0.7); #Lymphocytes 2.1 thou/uL (1.20-3.40); #Monocytes 0.4 thou/uL (0.11-0.59); #Neutrophils 5.2 thou/uL (1.40-6.50); %Basophils 0.9 % (0.0-1.0); %Eosinophils 1.3 % (0.0-10.0); %Lymphocytes 26.4 % (21.0-51.0); %Monocytes 4.9 % (0.0-10.0); %Neutrophils 66.5 % (42.0-75.0); Hemoglobin 12.5 g/dL (12.0-16.0); Mean Corpuscular Hemoglobin 29.1 pg (27.0-31.0); Mean Platelet Volume 6.1 fL (7.4-10.4); Platelet Count 509 thou/uL (130-400); RBC Distribution Width 14.1 % (11.5-14.5); Red Blood Cell (RBC) Count 4.32 mill/uL (4.20-5.40); White Blood Cell (WBC) Count 7.8 thou/uL (4.8-10.8)
[2019-07-28 04:01] LABS: ALT (SGPT) 21 U/L (8-55); AST (SGOT) 25 U/L (5-34); Albumin 4.2 g/dL (3.4-4.8); Alkaline Phosphatase 78 U/L (40-110); Anion Gap 15 mmol/L (10-20); BUN (Urea Nitrogen) 12 mg/dL (9.8-20.1); Bilirubin, Total 0.7 mg/dL (0.2-1.2); Calc. Creatinine Clearance 0 mL/min (70-130); Calcium 10.1 mg/dL (7.8-10.44); Carbon Dioxide 27 mmol/L (23-31); Chloride 103 mmol/L (98-107); Estimated GFR-MDRD 54; Globulin 3.3 g/dL (2.4-3.5); Glucose 99 mg/dL (80-115); Magnesium 2.2 mg/dL (1.6-2.6); Potassium 3.8 mmol/L (3.5-5.1); Protein, Total 7.5 g/dL (6.0-8.3); Sodium 141 mmol/L (136-145)
[2019-07-28 06:34] LABS: Troponin I 0.022 ng/mL (< 0.028)
[2019-07-28] MEDS ORDERED: Ondansetron ODT 4 MG TAB PO PRN (07:31)
[2019-07-28] MEDS ORDERED: Zolpidem Tartrate 5 MG TAB PO PRN (07:31)
[2019-07-28 07:41] VITALS: BMI 22.4
--- NOTE | 2019-07-28 07:56 | RAD ---
Portable frontal chest radiograph: 07/28/2019 COMPARISON: 07/16/2019 HISTORY: Chest pain FINDINGS: Lungs are clear. Heart and mediastinal contours appear within normal limits. Mild linear de nsity in both lung bases suggest scar and/or volume loss. Radiopaque structure overlies the cardiac silhouette suggesting a septal closure device. IMPRESSION: No acute findings.
--- NOTE | 2019-07-28 08:05 | HP ---
PRIMARY CARE PROVIDER: Rishabh Lucia DO INDUSTRIAL ELECTRICAL ENGINEER: Ji Smith MD HISTORY OF PRESENT ILLNESS: The patient with a recent history of atrial septal defect, which she underwent an Occluder device. She is not following that procedure. She developed a pericardial effusion, had to be life flighted back to [facility], this in December of last year. She was recently seen in her hospital with atrial flutter, placed on amiodarone. She was discharged on 07/20/2019. She now presents with chest feeling funny. She states it felt cool inside to take a deep breath. She stated her blood pressure kept going up and down from 145 systolic to 112 to 118 systolic. She states her heart rate was 85, sometimes slower, sometimes faster. She had no other symptoms. PAST MEDICAL HISTORY: 1. Atrial septal defect with Occluder device in [facility] in December of 2018, following that she apparently had pericardial effusion/bleeding. 2. Atrial flutter. 3. History of atrial fibrillation. 4. Osteopenia. CURRENT MEDICATIONS: 1. Amiodarone 200 mg p.o. b.i.d. 2. Lasix 20 mg a day. 3. KCl 20 mEq a day. 4. Aspirin 81 mg a day. 5. Protonix 40 mg a day. She states she was discharged on a cholesterol medicine, which she has not filled or taken. ALLERGIES: LISTED TO ASPIRIN, SULFA, AND AMOXICILLIN, BUT SHE IS ON ASPIRIN. PAST SURGICAL HISTORY: ASD repair, pericardial drain. FAMILY HISTORY: Father has diabetes. Mother had acute HI, suffered complications of sudden with the reperfusion. Two aunts with breast cancer. , at bedside. Nonsmoker, nondrinker. , Don, is surrogate decision maker. She is full code status. REVIEW OF SYSTEMS: HEAD: No headaches, dizziness, or fainting. EYES: No double vision, blurred vision, or flashing light. EAR, NOSE, AND THROAT: No ear pain or drainage. No nasal bleeding. No trouble swallowing. CARDIAC: No pressure, chest pain, orthopnea, or paroxysmal nocturnal dyspnea. RESPIRATIONS: She says she has a cough started yesterday. No wheezing or asthma. GASTROINTESTINAL: No nausea, vomiting, diarrhea, or constipation. GENITOURINARY: No hematuria, dysuria, or nocturia. MUSCULOSKELETAL: No pain or swelling in her arms or legs. NEUROLOGICAL: No strokes, seizures, or focal weakness. She does say that her right arm goes numb at times. It usually happens in the bed and she sleeps with that arm tucked under pillow. PSYCHIATRIC: No history of anxiety or depression, but she has been anxious since her atrial septal defect repair. SKIN: Some easy bruising with mild trauma on her hands. HEME/LYMPH: No tender or swollen lymph nodes in axilla, inguinal, or cervical area. PHYSICAL EXAMINATION: GENERAL: She is alert, pleasant, cooperative lady, who is a bit anxious, but in no distress. VITAL SIGNS: Blood pressure 120/62, pulse 69, respirations 16, room air saturation 98, and temperature 97.5. HEAD, EYES, EARS, NOSE, AND THROAT: Revealed pupils are equal, round, and reactive to light. Extraocular movements are intact. Sclerae are white. Tympanic membranes are clear. Nose clear. Oral mucous membranes are wet. Dental hygiene is good. NECK: No jugular venous distention, adenopathy, or thyromegaly. CHEST: Clear to auscultation and percussion. HEART: Regular rate and rhythm. First and second second heart sounds are clear. No murmur was appreciated. ABDOMEN: Soft. Bowel sounds are normal. There is no hepatosplenomegaly. No mass. No rebound or bruits. EXTREMITIES: Reveal no cyanosis, clubbing, or edema. PULSES: Carotid, radial, femoral, and dorsalis pedis pulses intact and symmetric. SKIN: Warm and dry without bruises or rash. HEME/LYMPH: No tender or swollen lymph nodes in axilla, inguinal, or cervical area. NEUROLOGICAL: Cranial nerves II through XII are intact. Moves all extremities. Sensation intact. IMAGING DATA: EKG x2, regular sinus rhythm with some nonspecific T-wave abnormality, personally reviewed. Chest x-ray, personally reviewed. No cardiomegaly, CHF, or infiltrate. LABORATORY DATA: Comprehensive metabolic profile normal. BNP 67. Troponin 0.01, 0.02. CBC unremarkable except for a platelet count of 509,000. ADMITTING DIAGNOSIS: 1. Atrial septal defect, post repair. 2. Atrial flutter, now in regular sinus rhythm. 3. Dyslipidemia, currently on no therapy. 4. Osteopenia. PLAN: Consult with her fluorescent lighting model maker, Dr. Ji Smith. We will continue her home medicines. Job ID: [id number]
[2019-07-28] MEDS ORDERED: Aspirin 81 mg Enteric Coated Tablet PO SCH (09:00)
[2019-07-28] MEDS: Potassium Chloride 20 MEQ TAB PO SCH (09:12)
[2019-07-28] MEDS: Amiodarone 200 MG TAB PO SCH ×2 (09:12→22:11)
[2019-07-28] MEDS: Furosemide 20 MG TAB PO SCH (09:13)
[2019-07-28] MEDS: Aspirin Chewable 81 MG TAB PO SCH (09:36)
[2019-07-28 09:54] LABS: Troponin I 0.024 ng/mL (< 0.028)
--- NOTE | 2019-07-28 09:59 | CON ---
DATE OF CONSULTATION: HISTORY OF PRESENT ILLNESS: This patient is a 64-year-old woman, with a history of coronary artery disease and an atrial septal defect, who presents with recurrent chest discomfort. The patient was seen in February of 2019. She was diagnosed with an atrial septal defect. She underwent a cardiac catheterization. She was found to have a 20% proximal LAD lesion, a 30% mid lesion, and a 90% lesion in the first septal nurse technician. The left circumflex artery and right coronary artery are free of significant disease. The patient underwent placement of an atrial occluder device done by Dr. Kwok. Following the procedure, she developed a pericardial effusion. She has intolerance to Eliquis and had to undergo drainage of the effusion. The patient also developed postoperative atrial fibrillation. She was seen in a few weeks ago with palpitations. She was in atrial flutter. The dose of her amiodarone was increased. The patient was in her usual state of health when she noted having some fevers and chills. She subsequently reported having midsternal chest discomfort. This seemed to be worse when she took a deep breath or lied on her side. The patient presented to the emergency room for further evaluation. The patient states that her chest pain has subsequently resolved. PAST MEDICAL HISTORY: 1. Coronary artery disease. 2. Atrial septal defect. 3. Atrial fibrillation. 4. Hypertension. PAST SURGICAL HISTORY: None. ALLERGIES: ASPIRIN, SULFA, AND AMOXICILLIN. SOCIAL HISTORY: Nonsmoker. MEDICATIONS: 1. Amiodarone 200 b.i.d. 2. Aspirin 81 daily. 3. Lasix 20 daily. 4. Protonix 40 daily. 5. Potassium 20 daily. PHYSICAL EXAMINATION: GENERAL: This is a well-developed woman, in no acute distress. VITAL SIGNS: Blood pressure 123/70. NECK: No jugular venous distention. LUNGS: Clear to auscultation. HEART: Regular rate and rhythm. Normal S1 and S2. ABDOMEN: Nondistended. EXTREMITIES: Show no edema. VASCULAR: Radial pulses 2+. LABORATORY DATA: Sodium 141, potassium 3.8, chloride 103, bicarbonate 27, BUN 12, and creatinine 1.0. Troponin less than 0.01. BNP was 67. White blood cell count 7.8, hemoglobin 12.5, hematocrit 38.0, and platelets are 509. IMAGING DATA: EKG revealed normal sinus rhythm with a nonspecific T-wave abnormality. IMPRESSION: 1. Chest pain, atypical. 2. History of coronary artery disease. 3. History of atrial septal defect Occluder device. 4. History of atrial fibrillation. 5. History of pericardial effusion. This patient presents with chest pain that is primarily atypical feature. She had a recent catheterization, which revealed moderate CAD. We will proceed with stress test to make sure there is no evidence of severe ischemia. Otherwise, we will follow this patient with you through her hospitalization. Job ID: [id number] [facility]
--- NOTE | 2019-07-28 13:44 | NM ---
Radionucleotide stress and rest myocardial perfusion scan with CT attenuation correction and SPECT im aging Left ventricular wall motion evaluation and ejection fraction HISTORY: Chest pain. Atrial fibrillation. FINDINGS: Lexiscan protocol. There is homogeneous uptake of radiotracer throughout the left ventricul ar myocardium. No focal perfusion defect or reversibility. QGS analysis of gated SPECT images shows no focal wall motion abnormalities. Ejection fraction calculated at 75%. IMPRESSION: Normal exam. Normal LVEF.
[2019-07-28] MEDS ORDERED: Pantoprazole 40 MG VIAL IVP SCH (15:00)
[2019-07-28] MEDS ORDERED: Regadenoson 0.4 MG/5 ML SYRINGE ONE (15:13)
[2019-07-28] MEDS ORDERED: Lidocaine 2% Viscous Solution 10 ML, Aluminum & Magnesium Hydroxide 30 ML SSW SCH (16:15)
--- NOTE | 2019-07-28 17:11 | PDOC.EVN ---
Event Note - Event Note Event Note: stress test normal. still complaining of vague chest pain. Dr Smith wants to watcn overnite, reevaluate inn AM
[2019-07-28] MEDS ORDERED: ALPRAZolam 0.25 MG TAB PO SCH (17:30)
[2019-07-28 18:07] LABS: Troponin I 0.013 ng/mL (< 0.028)
[2019-07-28] MEDS ORDERED: Rosuvastatin 10 MG TAB PO SCH (21:00)
[2019-07-28] MEDS: ALPRAZolam 0.25 MG TAB PO SCH (22:14)
[2019-07-28] MEDS: Acetaminophen 325 MG TAB PO PRN (22:43)
[2019-07-29] MEDS: Acetaminophen 325 MG TAB PO PRN (06:40)
[2019-07-29 08:20] VITALS: BP 109/59; TEMP 97.7
[2019-07-29] MEDS: ALPRAZolam 0.25 MG TAB PO SCH (08:42)
[2019-07-29] MEDS: Amiodarone 200 MG TAB PO SCH (08:42)
[2019-07-29] MEDS: Aspirin Chewable 81 MG TAB PO SCH (08:42)
[2019-07-29] MEDS: Furosemide 20 MG TAB PO SCH (09:00)
[2019-07-29] MEDS: Potassium Chloride 20 MEQ TAB PO SCH (09:00)
--- NOTE | 2019-07-29 13:32 | DIS ---
DATE OF ADMISSION: 07/28/2019 DATE OF DISCHARGE: 07/29/2019 PRIMARY CARE PHYSICIAN: Dr. Lucia. DISCHARGE DISPOSITION: Home. 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 SECONDARY DISCHARGE DIAGNOSES: History of atrial septal defect, history of atrial flutter, osteopenia, dyslipidemia. PRIMARY PROCEDURE/OPERATION: None. RADIOLOGICAL INVESTIGATION: Chest x-ray was normal. Stress test was negative. SIGNIFICANT LABORATORY DATA: CBC normal. BMP and LFT normal. Cardiac enzyme negative. DISCHARGE MEDICATIONS: 1. Zyrtec 10 mg daily p.r.n. 2. Lasix 20 mg daily. 3. Potassium chloride 20 mEq daily. 4. Xanax 0.25 mg b.i.d. p.r.n. 5. Amiodarone 200 mg p.o. b.i.d. 6. Aspirin 81 mg daily. 7. Protonix 40 mg p.o. daily. 8. Crestor 10 mg p.o. at bedtime. CONTRAINDICATION: None. The patient is not on blood thinner medication for current history of atrial flutter which is in sinus rhythm as per Cardiology recommendation. CODE STATUS: Full code. INPATIENT DIRECTOR SPEECH LANGUAGE: Dr. Smith, Cardiology. TEST RESULT PENDING ON DISCHARGE: None. ALLERGIES: AMOXICILLIN, SULFA. DISCHARGE PLAN: Posthospital, the patient will follow up with Cardiology and Dr. Lucia in one week. HOSPITAL COURSE: A 64-year-old female who was admitted by Dr. Chappell. Please see his H and P for further details. On admission, the patient was having vague chest discomfort. The patient has only history of atrial flutter and she was on amiodarone. She was discharged recently from the hospital and she was feeling vague chest discomfort and that is why she was brought to emergency room. Her serial cardiac enzyme was negative. Cardiology saw this patient and recommended to continue all previous medication without any change, but the patient's chest discomfort was consistent with possible anxiety neurosis and that is why they recommended to start Xanax which was prescribed and she will get refill from primary care physician. We have also prescribed Protonix for GERD, which is also contributing to her discomfort. Overall, the patient has clinical improvement and Cardiology cleared her for discharge. There is no plan for cardiac catheterization during this admission. The patient is seen and examined at bedside today. PHYSICAL EXAMINATION: VITAL SIGNS: Currently, temperature 97.7, pulse 76, respiratory rate 17, saturation 97% on room air, blood pressure 109/59. Weight 135 pounds. GENERAL: The patient is currently alert, awake, no acute distress. HEAD: Normocephalic and atraumatic. NECK: Supple. No JVD. No meningeal signs of irritation. LUNGS: Clear to auscultation without any rhonchi or rales. CARDIAC: S1 and S2 regular, no murmur, no gallop, no rub. ABDOMEN: Soft, bowel sounds present, nontender, nondistended. No organomegaly. No mass. EXTREMITIES: No edema. NEUROLOGIC: Nonfocal examination. The patient is medically stable for discharge today. I have checked [place] [facility] website before prescribing xanax and there was no record found under her name Job ID: [id number] MTDD
--- NOTE | 2019-08-01 14:14 | EKG ---
Test Reason : Blood Pressure : / mmHG Vent. Rate : 062 BPM Atrial Rate : 062 BPM P-R Int : 138 ms QRS Dur : 084 ms QT Int : 428 ms P-R-T Axes : 037 035 016 degrees QTc Int : 434 ms Normal sinus rhythm Possible Left atrial enlargement Nonspecific T wave abnormality Abnormal ECG #2 New T wave inversion V3-V5 Confirmed by JACK JORDAN DO ([id number]), commercial production editor HEMANT CHAVEZ ([id number]) on 08/01/2019 2:14:37 PM Referred By: Confirmed By:JACK JORDAN DO
--- NOTE | 2019-08-01 14:14 | EKG ---
Test Reason : Blood Pressure : / mmHG Vent. Rate : 077 BPM Atrial Rate : 077 BPM P-R Int : 148 ms QRS Dur : 088 ms QT Int : 414 ms P-R-T Axes : 053 044 009 degrees QTc Int : 468 ms Normal sinus rhythm Possible Left atrial enlargement Borderline ECG Confirmed by JACK JORDAN DO ([id number]), industrial editor HEMANT CHAVEZ ([id number]) on 08/01/2019 2:14:06 PM Referred By: Confirmed By:JACK JORDAN DO
--- NOTE | 2019-08-07 13:07 | STRESS ---
Acquisition Time: 2019-07-28 12:05:38 Total Exercise Time: 00:01:00 Test Indications: CHEST PAIN Medications: Protocol: LEXISCAN Max HR: 107 BPM 69% of Pred: 154 BPM Max BP: 124/064 mmHG Max Work Load: 1.0 METS THE PATIENT WAS INJECTED WITH LEXISCAN. SHE DID DEVELOP CHEST PAIN. THERE WAS T-WAVE INVERSION WITH STRESS. AWAIT NUCLEAR IMAGES FOR DEFINITIVE DIAGNOSIS Confirmed by MANUEL PINEDA ([id number]), industrial editor AYAAN ELLIOTT ([id number]) on 08/07/2019 1:06:47 PM Referred By: MIRIAM Confirmed By:MANUEL PINEDA
== END 2019-07-29 11:43 | disposition home or self-care (01) ==
LOC: ERS 03:05 → 2SW 06:17
PROVIDERS: ADMIT Internal Medicine; ATTEND Internal Medicine
DX: F41.1 Generalized anxiety disorder (principal); E78.5 Hyperlipidemia, unspecified; M85.80 Other specified disorders of bone density and structure, unspecified site; I25.10 Atherosclerotic heart disease of native coronary artery without angina pectoris; I48.91 Unspecified atrial fibrillation; I10 Essential (primary) hypertension; Z79.899 Other long term (current) drug therapy; Z79.82 Long term (current) use of aspirin; Z88.0 Allergy status to penicillin; Z88.2 Allergy status to sulfonamides; Z88.6 Allergy status to analgesic agent
CPT/HCPCS: 36415; 71045; 78452; 80053; 80299; 83735; 83880; 84484; 85025; 93005; 93017; 96374; A9500; C9113; G0378; J2785

== ENCOUNTER 2020-06-04 20:11 | Emergency (ER) | payer BC ==
[2020-06-04 20:58] LABS: #Eosinphils 0.1 thou/uL (0.0-0.7); #Lymphocytes 2.1 thou/uL (1.20-3.40); #Monocytes 0.4 thou/uL (0.11-0.59); #Neutrophils 5.2 thou/uL (1.40-6.50); %Basophils 0.5 % (0.0-1.0); %Eosinophils 1.1 % (0.0-10.0); %Lymphocytes 27.1 % (21.0-51.0); %Monocytes 4.6 % (0.0-10.0); %Neutrophils 66.6 % (42.0-75.0); Hemoglobin 14.2 g/dL (12.0-16.0); Mean Corpuscular HGB CONC 35.3 g/dL (32.0-36.0); Mean Corpuscular Hemoglobin 32.5 pg (27.0-31.0); Mean Corpuscular Volume 92.1 fL (78.0-98.0); Mean Platelet Volume 6.4 fL (7.4-10.4); Platelet Count 393 thou/uL (130-400); RBC Distribution Width 12.2 % (11.5-14.5); Red Blood Cell (RBC) Count 4.38 mill/uL (4.20-5.40); White Blood Cell (WBC) Count 7.7 thou/uL (4.8-10.8)
[2020-06-04 21:21] LABS: ALT (SGPT) 34 U/L (8-55); AST (SGOT) 38 U/L (5-34); Albumin 4.3 g/dL (3.4-4.8); Alkaline Phosphatase 90 U/L (40-110); Anion Gap 16 mmol/L (10-20); BUN (Urea Nitrogen) 13 mg/dL (9.8-20.1); Bilirubin, Total 0.6 mg/dL (0.2-1.2); Calc. Creatinine Clearance 0 mL/min (70-130); Calcium 9.6 mg/dL (7.8-10.44); Carbon Dioxide 25 mmol/L (23-31); Chloride 103 mmol/L (98-107); Globulin 3.5 g/dL (2.4-3.5); Glucose 89 mg/dL (80-115); Potassium 3.9 mmol/L (3.5-5.1); Protein, Total 7.8 g/dL (6.0-8.3); Sodium 140 mmol/L (136-145)
--- NOTE | 2020-06-04 21:54 | RAD ---
PORTABLE CHEST ONE VIEW: 06/04/20 at 9:33 p.m. HISTORY: Shortness of breath. COMPARISON: 07/28/19. The heart size is normal. The lungs are expanded without lobar consolidation, pneumothoraces or pleur al effusions. Septal occlusion device overlying the cardiac silhouette is again seen. There is an old nonhealed dis placed fracture of the left clavicle. IMPRESSION: No acute process. POS: OFF
[2020-06-04 23:56] LABS: Troponin I 0.013 ng/mL (< 0.028)
== END 2020-06-05 01:30 | disposition home or self-care (01) ==
LOC: ERS 20:11
DX: R06.02 Shortness of breath (principal); I10 Essential (primary) hypertension; I48.91 Unspecified atrial fibrillation
CPT/HCPCS: 36415; 71045; 80053; 84443; 84484; 85025; 93005

== ENCOUNTER 2021-03-12 00:15 | Emergency (ER) | payer MEDICARE, BC ==
[2021-03-12 01:53] LABS: ALT (SGPT) 16 U/L (8-55); AST (SGOT) 21 U/L (5-34); Albumin 4.3 g/dL (3.4-4.8); Alkaline Phosphatase 79 U/L (40-110); Anion Gap 14 mmol/L (10-20); BUN (Urea Nitrogen) 17 mg/dL (9.8-20.1); Bilirubin, Total 0.5 mg/dL (0.2-1.2); Calc. Creatinine Clearance 0 mL/min (70-130); Calcium 9.9 mg/dL (7.8-10.44); Carbon Dioxide 25 mmol/L (23-31); Chloride 106 mmol/L (98-107); Globulin 3.2 g/dL (2.4-3.5); Glucose 99 mg/dL (80-115); Lipase 74 U/L (8-78); Potassium 4.2 mmol/L (3.5-5.1); Protein, Total 7.5 g/dL (5.8-8.1); Sodium 141 mmol/L (136-145)
[2021-03-12 01:54] LABS: #Basophils 0.1 thou/uL (0.0-0.2); #Eosinphils 0.2 thou/uL (0.0-0.7); #Lymphocytes 1.8 thou/uL (1.20-3.40); #Monocytes 0.4 thou/uL (0.11-0.59); #Neutrophils 4.2 thou/uL (1.40-6.50); %Basophils 0.8 % (0.0-1.0); %Eosinophils 3.4 % (0.0-10.0); %Lymphocytes 26.7 % (21.0-51.0); %Monocytes 5.6 % (0.0-10.0); %Neutrophils 63.5 % (42.0-75.0); Hemoglobin 13.7 g/dL (12.0-16.0); Mean Corpuscular HGB CONC 34.1 g/dL (32.0-36.0); Mean Corpuscular Hemoglobin 29.8 pg (27.0-31.0); Mean Corpuscular Volume 87.3 fL (78.0-98.0); Mean Platelet Volume 6.4 fL (7.4-10.4); Platelet Count 428 thou/uL (130-400); RBC Distribution Width 13.2 % (11.5-14.5); Red Blood Cell (RBC) Count 4.61 mill/uL (4.20-5.40); White Blood Cell (WBC) Count 6.6 thou/uL (4.8-10.8)
[2021-03-12 04:24] LABS: Bilirubin Negative (Negative); Blood, Urine Negative (Negative); Clarity Clear (Clear); Glucose, Urine (Dipstick) Normal (Negative); Ketone, Urine Negative (Negative); Leukocyte 25 Leu/uL (Negative); Nitrite Negative (Negative); Protein, Urine (Dipstick) Negative (Neg-Trace); RBC/HPF 0-3 HPF (0-3); Specific Gravity, Urine 1.006 (1.002-1.036); Squamous Epithelial 0-3 HPF (0-3); Urobilinogen Normal mg/dL (Less than 2); WBC/HPF 0-3 HPF (0-3)
[2021-03-12 04:25] LABS: Bacteria/HPF 1+ HPF (None Seen)
== END 2021-03-12 06:09 | disposition home or self-care (01) ==
LOC: ERS 00:15
DX: R07.89 Other chest pain (principal); E78.00 Pure hypercholesterolemia, unspecified
CPT/HCPCS: 36415; 71045; 80053; 81003; 81015; 83690; 84484; 85025; 93005

== ENCOUNTER 2022-01-04 16:10 | Emergency (ER) | payer BC ==
[~2022-01-04 16:10] MED LIST: Iopamidol-370 76% 500 ML 1 ML ONE
[2022-01-04 17:04] LABS: Bilirubin Negative (Negative); Blood, Urine Negative (Negative); Clarity Clear (Clear); Glucose, Urine (Dipstick) Normal (Negative); Ketone, Urine Negative (Negative); Leukocyte Negative Leu/uL (Negative); Nitrite Negative (Negative); Protein, Urine (Dipstick) Negative (Neg-Trace); Specific Gravity, Urine 1.003 (1.002-1.036); Urobilinogen Normal mg/dL (Less than 2); pH, Urine 6.5 (5.0-9.0)
[2022-01-04 17:12] LABS: #Eosinphils 0.1 thou/uL (0.0-0.7); #Lymphocytes 1.5 thou/uL (1.20-3.40); #Monocytes 0.4 thou/uL (0.11-0.59); #Neutrophils 4.7 thou/uL (1.40-6.50); %Basophils 0.7 % (0.0-1.0); %Eosinophils 1.3 % (0.0-10.0); %Monocytes 5.5 % (0.0-10.0); %Neutrophils 70.5 % (42.0-75.0); Hemoglobin 13.9 g/dL (12.0-16.0); Mean Corpuscular HGB CONC 33.3 g/dL (32.0-36.0); Mean Corpuscular Hemoglobin 29.7 pg (27.0-31.0); Mean Corpuscular Volume 89.2 fL (78.0-98.0); Mean Platelet Volume 6.4 fL (7.4-10.4); Platelet Count 538 thou/uL (130-400); RBC Distribution Width 14.1 % (11.5-14.5); White Blood Cell (WBC) Count 6.7 thou/uL (4.8-10.8)
[2022-01-04 17:33] LABS: ALT (SGPT) 15 U/L (8-55); AST (SGOT) 24 U/L (5-34); Albumin 4.5 g/dL (3.4-4.8); Alkaline Phosphatase 71 U/L (40-110); Anion Gap 15 mmol/L (10-20); BUN (Urea Nitrogen) 14 mg/dL (9.8-20.1); Bilirubin, Total 0.7 mg/dL (0.2-1.2); Calc. Creatinine Clearance 0 mL/min (70-130); Calcium 10.1 mg/dL (7.8-10.44); Carbon Dioxide 27 mmol/L (23-31); Chloride 103 mmol/L (98-107); Estimated GFR 75; Globulin 3.1 g/dL (2.4-3.5); Glucose 96 mg/dL (80-115); Protein, Total 7.6 g/dL (5.8-8.1); Sodium 141 mmol/L (136-145)
== END 2022-01-04 19:29 | disposition home or self-care (01) ==
LOC: ERS 16:10
DX: M54.2 Cervicalgia (principal); I10 Essential (primary) hypertension; I48.91 Unspecified atrial fibrillation; Z79.899 Other long term (current) drug therapy; Z79.82 Long term (current) use of aspirin
CPT/HCPCS: 70491; 71260; 80053; 81003; 84484; 85025; 94760; Q9967

== ENCOUNTER 2022-01-26 21:33 | Observation (INO) | payer BC ==
[2022-01-26 22:56] LABS: #Basophils 0.1 thou/uL (0.0-0.2); #Eosinphils 0.2 thou/uL (0.0-0.7); #Lymphocytes 1.4 thou/uL (1.20-3.40); #Monocytes 0.4 thou/uL (0.11-0.59); #Neutrophils 6.3 thou/uL (1.40-6.50); %Basophils 0.7 % (0.0-1.0); %Eosinophils 2.6 % (0.0-10.0); %Lymphocytes 17.2 % (21.0-51.0); %Monocytes 4.3 % (0.0-10.0); %Neutrophils 75.2 % (42.0-75.0); Hemoglobin 13.7 g/dL (12.0-16.0); Mean Corpuscular HGB CONC 33.5 g/dL (32.0-36.0); Mean Corpuscular Hemoglobin 30.5 pg (27.0-31.0); Mean Corpuscular Volume 90.9 fL (78.0-98.0); Mean Platelet Volume 6.3 fL (7.4-10.4); Platelet Count 549 thou/uL (130-400); RBC Distribution Width 14.2 % (11.5-14.5); White Blood Cell (WBC) Count 8.3 thou/uL (4.8-10.8)
[2022-01-26 23:14] LABS: ALT (SGPT) 22 U/L (8-55); AST (SGOT) 29 U/L (5-34); Albumin 4.6 g/dL (3.4-4.8); Alkaline Phosphatase 69 U/L (40-110); Anion Gap 13 mmol/L (10-20); BUN (Urea Nitrogen) 15 mg/dL (9.8-20.1); Bilirubin, Total 0.7 mg/dL (0.2-1.2); Calc. Creatinine Clearance 0 mL/min (70-130); Calcium 10.6 mg/dL (7.8-10.44); Carbon Dioxide 28 mmol/L (23-31); Chloride 104 mmol/L (98-107); Estimated GFR 71; Globulin 2.7 g/dL (2.4-3.5); Glucose 121 mg/dL (80-115); Lipase 94 U/L (8-78); Potassium 4.2 mmol/L (3.5-5.1); Protein, Total 7.3 g/dL (5.8-8.1); Sodium 141 mmol/L (136-145)
[2022-01-27 02:17] LABS: Troponin I 0.014 ng/mL (< 0.028)
[2022-01-27 03:15] VITALS: BMI 22.4
[2022-01-27 05:34] LABS: Troponin I 0.011 ng/mL (< 0.028)
[2022-01-27] MEDS ORDERED: Senokot S 8.6-50 MG TAB PO PRN (08:17)
[2022-01-27] MEDS ORDERED: Ondansetron PF 4 MG/2 ML Vial IVP PRN (08:17)
[2022-01-27] MEDS ORDERED: Acetaminophen 325 MG TAB PO PRN (08:17)
[2022-01-27] MEDS ORDERED: Ondansetron ODT 4 MG TAB PO PRN (08:17)
[2022-01-27] MEDS ORDERED: Sodium Chloride 0.9% 1,000 ML IV SCH (08:30)
[2022-01-27 08:45] LABS: #Eosinphils 0.1 thou/uL (0.0-0.7); #Lymphocytes 1.5 thou/uL (1.20-3.40); #Monocytes 0.3 thou/uL (0.11-0.59); #Neutrophils 4.3 thou/uL (1.40-6.50); %Basophils 0.7 % (0.0-1.0); %Eosinophils 2.1 % (0.0-10.0); %Lymphocytes 23.9 % (21.0-51.0); %Monocytes 4.6 % (0.0-10.0); %Neutrophils 68.8 % (42.0-75.0); Hemoglobin 13.3 g/dL (12.0-16.0); Mean Corpuscular HGB CONC 33.3 g/dL (32.0-36.0); Mean Corpuscular Hemoglobin 30.2 pg (27.0-31.0); Mean Corpuscular Volume 90.7 fL (78.0-98.0); Mean Platelet Volume 6.3 fL (7.4-10.4); Platelet Count 460 thou/uL (130-400); Red Blood Cell (RBC) Count 4.41 mill/uL (4.20-5.40); White Blood Cell (WBC) Count 6.3 thou/uL (4.8-10.8)
[2022-01-27 09:09] LABS: CRP (Inflammatory) Less than 0.50 mg/dL (= or < 0.5); Cardiac Risk 3.6 (Less than 4.5); Cholesterol 134 mg/dl (< 200 Desired); HDL Cholesterol 37 mg/dL (>60 Neg Risk); LDL Cholesterol, Calculated 73 mg/dL; Triglycerides 119 mg/dL (Less than 150)
[2022-01-27 09:10] LABS: ALT (SGPT) 27 U/L (8-55); AST (SGOT) 28 U/L (5-34); Albumin 4.2 g/dL (3.4-4.8); Alkaline Phosphatase 67 U/L (40-110); Anion Gap 13 mmol/L (10-20); BUN (Urea Nitrogen) 12 mg/dL (9.8-20.1); Bilirubin, Total 0.7 mg/dL (0.2-1.2); Calc. Creatinine Clearance 67 mL/min (70-130); Calcium 9.9 mg/dL (7.8-10.44); Carbon Dioxide 25 mmol/L (23-31); Chloride 108 mmol/L (98-107); Estimated GFR 83; Globulin 2.4 g/dL (2.4-3.5); Glucose 100 mg/dL (80-115); Lipase 61 U/L (8-78); Potassium 4.2 mmol/L (3.5-5.1); Protein, Total 6.6 g/dL (5.8-8.1); Sodium 142 mmol/L (136-145)
[2022-01-27] MEDS: Aspirin 81 mg Enteric Coated Tablet PO SCH (09:18)
[2022-01-27] MEDS: Enoxaparin Sodium 40 MG/0.4 ML SYRINGE SC SCH (10:26)
[2022-01-28 05:35] LABS: #Eosinphils 0.3 thou/uL (0.0-0.7); #Lymphocytes 2.5 thou/uL (1.20-3.40); #Monocytes 0.4 thou/uL (0.11-0.59); #Neutrophils 3.5 thou/uL (1.40-6.50); %Basophils 0.5 % (0.0-1.0); %Eosinophils 3.9 % (0.0-10.0); %Lymphocytes 37.5 % (21.0-51.0); %Monocytes 5.6 % (0.0-10.0); %Neutrophils 52.4 % (42.0-75.0); Hemoglobin 13.4 g/dL (12.0-16.0); Mean Corpuscular HGB CONC 33.4 g/dL (32.0-36.0); Mean Corpuscular Hemoglobin 30.8 pg (27.0-31.0); Mean Corpuscular Volume 92.3 fL (78.0-98.0); Mean Platelet Volume 6.5 fL (7.4-10.4); Platelet Count 472 thou/uL (130-400); RBC Distribution Width 14.3 % (11.5-14.5); Red Blood Cell (RBC) Count 4.33 mill/uL (4.20-5.40); White Blood Cell (WBC) Count 6.6 thou/uL (4.8-10.8)
[2022-01-28 06:00] LABS: Hemoglobin A1c 4.7 % (4.0-6.0)
[2022-01-28 06:04] LABS: ALT (SGPT) 20 U/L (8-55); AST (SGOT) 23 U/L (5-34); Alkaline Phosphatase 57 U/L (40-110); Anion Gap 10 mmol/L (10-20); BUN (Urea Nitrogen) 8 mg/dL (9.8-20.1); Calc. Creatinine Clearance 69 mL/min (70-130); Calcium 9.4 mg/dL (7.8-10.44); Carbon Dioxide 27 mmol/L (23-31); Chloride 109 mmol/L (98-107); Estimated GFR 85; Globulin 2.3 g/dL (2.4-3.5); Glucose 92 mg/dL (80-115); Potassium 3.7 mmol/L (3.5-5.1); Protein, Total 6.3 g/dL (5.8-8.1); Sodium 142 mmol/L (136-145)
[2022-01-28] MEDS: Aspirin 81 mg Enteric Coated Tablet PO SCH (09:32)
[2022-01-28] MEDS: Enoxaparin Sodium 40 MG/0.4 ML SYRINGE SC SCH ×2 (09:33→09:38)
[2022-01-28 11:47] VITALS: BP 116/56; TEMP 97.8
== END 2022-01-28 15:03 | disposition home or self-care (01) ==
LOC: ERS 21:33 → NEURO 01-27 00:50
PROVIDERS: ADMIT Internal Medicine; ATTEND Internal Medicine
DX: R07.9 Chest pain, unspecified (principal); I48.91 Unspecified atrial fibrillation; Z87.74 Personal history of (corrected) congenital malformations of heart and circulatory system; Z79.82 Long term (current) use of aspirin; Z79.899 Other long term (current) drug therapy; Z88.2 Allergy status to sulfonamides; Z88.8 Allergy status to other drugs, medicaments and biological substances
CPT/HCPCS: 36415; 71045; 80053; 80061; 83036; 83690; 84484; 85025; 86140; 93005; 93306; J1650; J7050; U0003; U0005

== ENCOUNTER 2022-09-11 10:38 | Outpatient (CLI) | payer BC | END 2022-09-11 10:39 | disposition home or self-care (01) | LOC: RAD 10:38 | PROVIDERS: ATTEND Nurse Practitioner Family | DX: S49.91XA Unspecified injury of right shoulder and upper arm, initial encounter (principal) ==

== ENCOUNTER → 2023-02-01 | Day surgery (SDC) | payer BC ==
[~2023-02-01] MED LIST changes: +EPINEPHrine 1 MG/ML AMP ONE; +Iopamidol 300 61% 100 ML VIAL FS ONE; -Iopamidol-370 76% 500 ML 1 ML ONE; +Lidocaine 1% PF 5 ML VIAL ONE; +Sodium Chloride 0.9% (PF) 10 ML VIAL ONE
== END ==
LOC: RAD 07:55
PROVIDERS: ATTEND Orthopaedic Surgery
PROC: BP28YZZ Computerized Tomography (CT Scan) of Right Shoulder using Other Contrast (ICD-10-PCS; principal; 2023-02-01)
DX: M75.101 Unspecified rotator cuff tear or rupture of right shoulder, not specified as traumatic (principal)
CPT/HCPCS: 23350; J0171; Q9967

== ENCOUNTER 2023-07-02 13:25 | Outpatient (CLI) | payer BC | END 2023-07-02 13:26 | disposition home or self-care (01) | LOC: BICMAMMO 13:25 | PROVIDERS: ATTEND Nurse Practitioner Family | DX: Z12.31 Encounter for screening mammogram for malignant neoplasm of breast (principal); Z13.820 Encounter for screening for osteoporosis; M81.0 Age-related osteoporosis without current pathological fracture; M85.89 Other specified disorders of bone density and structure, multiple sites; Z78.0 Asymptomatic menopausal state; Z80.3 Family history of malignant neoplasm of breast | CPT/HCPCS: 77063; 77067; 77080 ==